=== PATIENT | male | born 1950 | race Caucasian/White ===

== ENCOUNTER 2019-10-21 13:36 | Inpatient (IN) | payer MEDICARE, SELFPAY ==
[2019-10-21] VITALS (10 sets, daily range): BP systolic 104–131; BP diastolic 60–79; PULSE 111–123; RESP 20–24; TEMP 36.6–37; O2SAT 95–98; BMI 28.4
--- NOTE | ~2019-10-21 | XR_ITS ---
EXAMINATION: XR chest 2V DATE: 10/21/2019 14:33 INDICATION: Shortness of breath and cough TECHNIQUE: PA and lateral views of the chest are obtained. COMPARISON: 07/19/2019 FINDINGS: There are patchy airspace opacities of the mid and lower lung zones. There is no pleural ef fusion or pneumothorax. The cardiomediastinal silhouette is normal. There is mild thoracic spondylosi s. IMPRESSION: 1. Minimal airspace opacities of the mid and lower lung zones, consistent with pneumonia versus atele ctasis. Reviewed, dictated and finalized at location A. IMPRESSION: 1. Minimal airspace opacities of the mid and lower lung zones, consistent with pneumonia versus atelectasis.
--- NOTE | 2019-10-21 14:18 | ECG_ITS ---
Measurements Intervals [place] Rate: 118 P: 70 CO: 130 QRS: 50 QRSD: 81 T: 54 QT: 278 QTc: 390 Interpretive Statements SINUS TACHYCARDIA ATRIAL PREMATURE COMPLEX ABNORMAL ECG Electronically Signed On 10-21-2019 14:46:30 CDT by Doug Pablo D.O.
[2019-10-21] MEDS: methylPREDNISolone SOD SUCC 125 MG VIAL IV PUSH (14:50)
[2019-10-21] MEDS: IPRATROPIUM 0.5 MG/ALBUTEROL SULFATE 2.5 MG AMPUL.NEB 3 ML INHALATION ×2 (14:50→18:55)
[2019-10-21 14:58] LABS: Basophils Absolute Auto 0.13 K/mm3 (0.00-0.10); Eosinophils Absolute Auto 0.44 K/mm3 (0.02-0.50); Eosinophils Percent Auto 3.4 % (1.0-6.0); Hematocrit 43.4 % (37.0-46.0); Hemoglobin 14.2 g/dL (12.4-15.3); Immature Granulocyte Absolute 0.06 K/mm3 (0.00-0.00); Immature Granulocyte Percent A 0.5 % (0.0-0.0); Lymphocytes Absolute Auto 1.87 K/mm3 (1.10-4.50); Lymphocytes Percent Auto 14.5 % (18.0-42.0); Mean Corpuscular HGB Conc 32.7 g/dL (32.0-36.0); Mean Corpuscular Hemoglobin 31.3 pg (27.0-31.0); Mean Corpuscular Volume 95.6 fL (78.0-102.0); Mean Platelet Volume 9.5 fl (8.7-11.0); Monocytes Absolute Auto 1.14 K/mm3 (0.10-0.90); Monocytes Percent Auto 8.8 % (2.0-11.0); Neutrophils Absolute Auto 9.3 K/mm3 (1.7-7.2); Neutrophils Percent Auto 71.8 % (50.0-70.0); Platelet Count Result 282 K/mm3 (150-420); Red Blood Count 4.54 M/mm3 (4.70-6.10); Red Cell Distribution Width 13.2 % (11.6-14.4); White Blood Count 12.9 K/mm3 (4.8-10.8)
[2019-10-21 15:16] LABS: Lactic Acid 1.7 mmol/L (0.4-2.0); Magnesium 1.7 mg/dL (1.8-2.4)
[2019-10-21 15:16] LABS: Alanine Aminotransferase 20 U/L (16-63); Albumin Level 3.5 g/dL (3.4-5.0); Alkaline Phosphatase 82 U/L (46-116); Anion Gap 12.7 mmol/L (7-16); Aspartate Amino Transferase 13 U/L (15-37); Bilirubin,Total 0.3 mg/dL (0.00-1.00); Blood Urea Nitrogen 14 mg/dL (7-18); Calcium 8.9 mg/dL (8.5-10.1); Carbon Dioxide 29 mmol/L (21-32); Chloride 103 mmol/L (98-108); Estimated Glomerular Filt Rate > 60; Glucose 112 mg/dL (70-99); Osmolality Calculated 291 mOsm/kg (285-295); Potassium 4.7 mmol/L (3.5-5.1); Sodium 140 mmol/L (136-145)
[2019-10-21 15:17] LABS: Troponin I < 0.02 ng/mL (0.00-0.056)
[2019-10-21 15:19] LABS: Influenza Control Valid (Valid)
--- NOTE | 2019-10-21 15:22 | ED.SOB ---
HPI - SOB/Dyspnea General Chief Complaint: Shortness of Breath/Dyspnea Stated Complaint: SOB Source: patient and family Mode of arrival: ambulatory Limitations: no limitations History of Present Illness HPI Narrative: 68-year-old male with increasing shortness of breath over the last 3 days has a history of COPD, has had pneumonia in the past recently discharged the end of June with COPD exacerbation and pneumonia. Currently the patient is shortness of breath with no fever chills is currently no cough no chest pain no abdominal pain. Patient has a history of COPD, history of CHF, diabetes hypertension. If has not been any outside of the area travel no fever or chills. MD elicited complaint: shortness of breath Pertinent past history: COPD, congestive heart failure and diabetes Onset (ago): day(s) Context: anxiety Timing: constant and progressively worsening Severity: moderate Exacerbating factors: exertion Relieving factors: rest and bronchodilators Known history of: COPD and recurrent pneumonia Treatment prior to arrival: oxygen and bronchodilator Related Data Home Medications Medication Instructions Recorded Confirmed ipratropium-albuterol 3 ml INHALATION Q4H PRN 07/19/19 10/21/19 budesonide-formoterol [Symbicort] 2 puff INHALATION Q12H 10/21/19 10/21/19 furosemide 80 mg PO DAILY 10/21/19 10/21/19 insulin glargine [Lantus Solostar 40 unit SUBCUT DAILY 10/21/19 10/21/19 U-100 Insulin] metformin 1,000 mg PO BID 10/21/19 10/21/19 pravastatin 40 mg PO DAILY 10/21/19 10/21/19 simethicone 80 mg PO QID 10/21/19 10/21/19 tiotropium bromide [Spiriva 2 inh INHALATION QAM 10/21/19 10/21/19 Respimat] Allergies Allergy/AdvReac Type Severity Reaction Status Date / Time No Known Allergies Allergy Unknown Unknown Uncoded 07/26/19 07:02 Review of Systems Review of Systems: All systems reviewed & are unremarkable except as noted in HPI and below PMFSH Past Medical History Medical History Anxiety brought on by worsening of COPD and when around crowds. COPD (chronic obstructive pulmonary disease) Obesity Type 2 diabetes mellitus treated with insulin Family History Family History Mother Hyperlipidemia Father No problems noted. Sibling Diabetes mellitus Social History Social History Smoking packs per day: 1.5 Smoking cigarettes per day: 30.0 Years smoked: 40 Smoking pack-years: 60.00 Smoking status: Former smoker Tobacco type: cigarettes Second hand tobacco smoke exposure: Yes Alcohol intake: current Drinks per week: 1 Substance use: never Substance use type: does not use Gender identity (if verbalized by the patient): Male Spiritual care concerns: No Agree to blood products: Yes Exam Const: General: no acute distress and alert Orientation/consciousness: patient oriented x3 HENMT: Head: normal to inspection Eyes: Conjunctivae: conjunctivae normal Pupils: Equal, round and reactive pupils present Neck: Neck: normal visual inspection and no lymphadenopathy Chest: Chest palpation & inspection: normal inspection of the chest Resp: Effort & Inspection: labored Auscultation: rhonchi, wheezes and diminished lung sounds Cardio: Rate: regular rate and tachycardic GI: GI Palp: Yes Soft to palpation : Testes: Testes normal Back/Spine/Pelvis: Back: no CVA tenderness Skin: General skin exam: normal color Neuro: General: patient oriented x3, moves all extremities and no meningeal signs Speech: normal speech Extrem: General: normal to inspection Psych: Mental Status: mental status grossly normal Affect: normal affect Thought content: Yes Normal thought content present Course Vital Signs Vital signs: Vital Signs Temperature 36.7 C 10/21/19 13:54 Pulse Rate 116 H 10/21/19 13:5
[2019-10-21 15:24] LABS: BNP 17.8 pg/mL (0-100)
[2019-10-21 15:48] LABS: HCO3 VBG 27.1 mEq/l (24.0-30.0); PCO2 VBG 51.7 mmHg (42.0-48.0); PO2 VBG 34.4 mmHg (35.0-45.0); pH VBG 7.34 (7.33-7.43)
[2019-10-21 15:49] LABS: Device NASAL CANNULA
[2019-10-21] MEDS: BUDESONIDE/FORMOTEROL (*SP) 160-4.5 MCG 6 GM INH 2 PUFF INHALATION (17:12)
[2019-10-21] MEDS: SODIUM CHLORIDE 0.9% IV 1,000 ML 100 ML IV CONT (17:12)
[2019-10-21] MEDS: SIMETHICONE 80 MG TAB.CHEW PO ×2 (17:12→20:51)
[2019-10-21] MEDS: metFORMIN HCL 500 MG TABLET 1000 MG PO (17:12)
[2019-10-21 17:20] LABS: Glucose Point of Care 153 (65-105)
--- NOTE | 2019-10-21 17:30 | ADMGEN ---
This patient, Cooper Kenney, was admitted to 2nd Floor Room 226-2. Patient/family oriented to hospital policies and general routines including ID bracelet, bed and alarms, visiting hours, pain management, procedures, bathroom and other care routines, personal items, smoking policy, room service/diet, and visiting hours. Valuables list has been completed.Pt questions if dr has continued his anxiety meds. Information on how to activate the Rapid Response Team has been discussed. Patient is encouraged to report perceived risks to care and to ask questions if they do not understand what they are told or what they should do.
[2019-10-21] MEDS: methylPREDNISolone SOD SUCC 40 MG VIAL IV PUSH (20:51)
[2019-10-21 21:00] LABS: Glucose Point of Care 254 (65-105)
--- NOTE | 2019-10-21 22:21 | PC.NURSE ---
pt says his breathing is better, asks for sandwich, dessert cup and another garth mist, iv running,
[2019-10-22] VITALS (11 sets, daily range): BP systolic 111–139; BP diastolic 59–79; PULSE 89–136; RESP 18–24; TEMP 36–36.6; O2SAT 90–98
[2019-10-22] MEDS: IPRATROPIUM 0.5 MG/ALBUTEROL SULFATE 2.5 MG AMPUL.NEB 3 ML INHALATION ×2 (00:25→05:43)
--- NOTE | 2019-10-22 00:49 | PC.NURSE ---
[address] [facility] pharmacy to blair orders
[2019-10-22] MEDS: BUDESONIDE/FORMOTEROL (*SP) 160-4.5 MCG 6 GM INH 2 PUFF INHALATION (05:03)
[2019-10-22 05:22] LABS: Basophils Absolute Auto 0.03 K/mm3 (0.00-0.10); Basophils Percent Auto 0.2 % (0.0-1.0); Hematocrit 43.9 % (37.0-46.0); Hemoglobin 14.2 g/dL (12.4-15.3); Immature Granulocyte Absolute 0.06 K/mm3 (0.00-0.00); Immature Granulocyte Percent A 0.5 % (0.0-0.0); Lymphocytes Absolute Auto 0.95 K/mm3 (1.10-4.50); Lymphocytes Percent Auto 7.3 % (18.0-42.0); Mean Corpuscular HGB Conc 32.3 g/dL (32.0-36.0); Mean Corpuscular Hemoglobin 31.1 pg (27.0-31.0); Mean Corpuscular Volume 96.1 fL (78.0-102.0); Mean Platelet Volume 9.7 fl (8.7-11.0); Monocytes Absolute Auto 0.18 K/mm3 (0.10-0.90); Monocytes Percent Auto 1.4 % (2.0-11.0); Neutrophils Absolute Auto 11.8 K/mm3 (1.7-7.2); Neutrophils Percent Auto 90.6 % (50.0-70.0); Platelet Count Result 273 K/mm3 (150-420); Red Blood Count 4.57 M/mm3 (4.70-6.10); Red Cell Distribution Width 13.4 % (11.6-14.4)
[2019-10-22 05:38] LABS: Alanine Aminotransferase 18 U/L (16-63); Albumin Level 3.4 g/dL (3.4-5.0); Alkaline Phosphatase 74 U/L (46-116); Anion Gap 15.9 mmol/L (7-16); Aspartate Amino Transferase 12 U/L (15-37); Bilirubin,Total 0.2 mg/dL (0.00-1.00); Blood Urea Nitrogen 18 mg/dL (7-18); Calcium 8.9 mg/dL (8.5-10.1); Carbon Dioxide 27 mmol/L (21-32); Chloride 100 mmol/L (98-108); Estimated CRCL calculation 43 ml/min; Estimated Glomerular Filt Rate 58; Glucose 232 mg/dL (70-99); Magnesium 1.9 mg/dL (1.8-2.4); Osmolality Calculated 294 mOsm/kg (285-295); Potassium 4.9 mmol/L (3.5-5.1); Sodium 138 mmol/L (136-145); Total Protein 7.9 g/dL (6.4-8.2)
[2019-10-22 05:44] LABS: BNP 37.4 pg/mL (0-100)
--- NOTE | 2019-10-22 07:25 | PC.NURSE ---
Sitting in chair, states feeling better, no acute distress noted, cough at times, oxygen as per home dose 3L NC, afebrile, no pain
[2019-10-22 07:35] LABS: Glucose Point of Care 213 (65-105)
--- NOTE | 2019-10-22 08:30 | PC.NURSE ---
EAting breakfast, denies needs, no distress noted, no cough at this time
[2019-10-22] MEDS: INSULIN GLARGINE (*BKC) 100 UNITS/ML 40 UNITS SUB-Q (08:46)
[2019-10-22] MEDS: methylPREDNISolone SOD SUCC 40 MG VIAL IV PUSH (08:48)
[2019-10-22] MEDS: metFORMIN HCL 500 MG TABLET 1000 MG PO (08:49)
[2019-10-22] MEDS: PRAVASTATIN SODIUM 20 MG TABLET 40 MG PO (08:49)
[2019-10-22] MEDS: SIMETHICONE 80 MG TAB.CHEW PO (08:51)
[2019-10-22] MEDS: FUROSEMIDE 40 MG TABLET 80 MG PO (08:51)
--- NOTE | 2019-10-22 10:03 | PC.NURSE ---
In chair denies needs at this time, oxygen on at 3L NC
[2019-10-22 11:32] LABS: Glucose Point of Care 264 (65-105)
--- NOTE | 2019-10-22 11:43 | PM.IMHP ---
H&P: HPI History of Present Illness Chief complaint: SOB Narrative: Cooper Kenney is a 68 year old male that was admitted yesterday through the ED with increasing shortness of breath/dyspnea over the last 3 days with exertion. He has had pneumonia in the past, was recently discharged the end of June with COPD exacerbation and pneumonia. In the ED admission, the patient was short of breath with no fever chills, no cough, no chest pain, no abdominal pain. Patient has a history of COPD, recurrent pneumonia, anxiety, history of CHF, diabetes, and hypertension. He has not been any outside of the area travel, no fever or chills. Today, Cooper is feeling much better and stated that he wanted to go home today. He continues to have a productive cough with green tinted sputum. Ordered sputum culture. He is currently tolerating 3L02 NC (which is his baseline home O2 requirement as well). He told me that he came to the ED because he was getting significantly short of breath and having to rest with activity that he hadn't needed to prior. This could be relelated to pneumonia or could also be related to progression or advancing of his COPD. Ordered PT/OT evaluation. Checking his BNP level, ordered COVID swab, and discussed discharge. Patient voiced understanding that he may get worse again while at home and will need to come back to the ED right away for re-evaluation - Cooper voiced understanding and said that in the past he has done that before with COPD exacerbations. I also discussed possible concerning s/s of COVID infection and worsening of his condition - he voiced understanding of those as well and that he would need to return to the ED for re-evaulation/treatment as needed. He lives at home with his 80+ mother (who is herself feeling well and outside doing yardwork this week per patient report) and they have separate bedrooms. Will discharge and continue his oxygen, antibiotic, inhalers, and nebs (he informed me that he has a nebulizer at home already and knows how to do neb txs.) Review of Systems Review of Systems: All systems reviewed & are unremarkable except as noted in HPI and below Constitutional: Constitutional: Reports as per HPI, Denies excessive sweating, Denies headache(s), Denies increased appetite, Denies snoring and Denies weight gain Eyes: Eyes: Reports as per HPI, Denies exophthalmos, Denies diplopia, Denies floaters and Denies loss of peripheral vision ENT: Reports as per HPI, Reports Normal hearing present, Denies facial pain, Denies headache(s), Denies nasal congestion, Denies nasal discharge, Denies odynophagia and Denies tinnitus Cardiovascular: Cardiovascular: Reports as per HPI, Denies chest pain, Denies diaphoresis, Reports pedal edema, Reports leg edema, Denies lightheadedness and Denies palpitations Comments: patient states that his leg and feet swelling are chronic and are always like that He states that he has his lasix 80mg and has been taking it every day. Respiratory: Respiratory: Reports as per HPI, Reports chest congestion, Reports cough, Denies hemoptysis, Reports dyspnea, Reports dyspnea on exertion, Denies snoring and Denies wheezing Gastrointestinal: Gastrointestinal: Reports as per HPI, Denies abdominal pain, Denies melena, Denies bloating, Denies hematochezia, Denies constipation, Denies heartburn, Denies diarrhea, Denies nausea, Denies odynophagia, Denies vomiting and Denies hematemesis Genitourinary: Genitourinary: Reports as per HPI, Denies hematuria, Denies dysuria, Denies flank pain, Denies urinary frequency, Denies urinary hesitancy, Denies urinary incontinence and Denies urinary urgency Musculoskeletal: Musculoskeletal: Denies no additional musculoskeletal complaints, Reports as per HPI, Denies back pain, Reports myalgias (chronic left leg stiffness & pain with standing after sitting for long time), Denies arthralgias, Denies joint swelling, Denies neck pain and Reports stiffness Integumentary/Breasts: S
--- NOTE | 2019-10-22 12:05 | PC.NURSE ---
Eating lunch, denies needs, no distress at rest
[2019-10-22 12:34] LABS: BNP 27.6 pg/mL (0-100)
--- NOTE | 2019-10-22 13:24 | PM.DS ---
DS: Diagnosis Admitting Diagnosis Admitting Diagnosis: Chronic obstructive pulmonary disease with (acute) exacerbation Discharge Diagnosis (1) Acute exacerbation of chronic obstructive pulmonary disease: Code(s): J44.1 - Chronic obstructive pulmonary disease with (acute) exacerbation Status: Acute Assessment and Plan: his shortness of breath/dyspnea has improved since admission with medications and interventions. caused by COPD exacerbation VS. CHF exacerbation VS. COPD progression of disease VS. bilateral pneumonia VS. Covid . no fever or chills, productive cough - ordered sputum, no chest pain, no numbness or tingling, no arm or jaw pain, no abdominal pain. history of COPD, recurrent pneumonia, anxiety, history of CHF, diabetes, and hypertension. checking BNP level (patient denies this feeling like a CHF exacerbation) and recommended daily weight log at home. Cooper is feeling much better and stated that he wanted to go home today. Will discharge on antibiotics, steroids, Mucinex, Inhalers/Neb. Txs. , and continued home O2 order (3L O2 NC) HR increases significantly with exertion, may be related to obesity, CHF, deconditioning, respiratory dysfxn. (due to pneumonia/COPD). BNP was under 50 yesterday and today, CHF appears to be controlled. ordered COVID swab, and discussed discharge. WBC remains relatively stable (despite steroid dosing) 12.9 to 13.0, no fevers. Patient voiced understanding that he may or may not get worse again while at home and will need to come back to the ED right away for re-evaluation - Cooper voiced understanding and said that in the past he has done that before with COPD exacerbations. I also discussed possible concerning s/s of COVID infection and worsening of his condition - he voiced understanding of those as well and that he would need to return to the ED for re-evaulation/treatment as needed. He lives at home with his 80+ mother (who is herself feeling well and outside doing yardwork this week per patient report) and they have separate bedrooms. Will discharge and continue his oxygen, antibiotic, inhalers, and nebs (he informed me that he has a nebulizer at home already and knows how to do neb txs.) (2) Obesity: Code(s): E66.9 - Obesity, unspecified Status: Acute Assessment and Plan: Obese with BMI 28.5 continue weight loss efforts weigh yourself daily and record the weights in a log to discuss with PCP and other physicians, especially Hide Dyer. gradually increase activity daily calorie/carb counting continue glucose control with daily glucometer testing F/U with PCP Dr. Nance (3) Hypertension: Code(s): I10 - Essential (primary) hypertension Status: Acute Assessment and Plan: Check Blood pressure and Heart Rate daily at home record the BP and HR in a log to discuss with PCP and other physicians, especially Hide Dyer. work on further weight loss and continue weight loss efforts weigh yourself daily and record the weights in a log to discuss with PCP and other physicians, especially Hide Dyer. gradually increase activity daily calorie/carb counting continue daily home Provastatin and Furosemide BNP was under 50 yesterday and today, CHF appears to be controlled. F/U with PCP Dr. Nance and [place] Hide Dyer. (4) Type 2 diabetes mellitus treated with insulin: Code(s): E11.9 - Type 2 diabetes mellitus without complications; Z79.4 - termite inspector (current) use of insulin Status: Acute Assessment and Plan: Obese with BMI 28.5 continue weight loss efforts weigh yourself daily and record the weights in a log to discuss with PCP and other physicians, especially Hide Dyer. gradually increase activity daily calorie/carb counting continue glucose control with daily glucometer testing continue daily Metformin at home and daily Lantus at home F/U with PCP Dr. Nance (5) Pneumonia: Qualifiers: Laterality: right
--- NOTE | 2019-10-22 13:36 | PC.NURSE ---
Telemetry discontinued, dressing self, called for ride
--- NOTE | 2019-10-22 14:00 | PC.NURSE ---
Discharge instructions reviewed, questioned why no dexamethasone, educated on use of prednisone and ability to taper dosing, follow up with Dr Nance to review medications, no further questions voiced, waiting on ride home
--- NOTE | 2019-10-22 14:10 | PC.NURSE ---
discharge via wheel chair to home, personal items and medications returned to patient
--- NOTE | 2019-10-22 20:44 | PM.EVENT ---
Event Note Event Note Event Note: Patient states he feels better today and wants to go. Diffuse breath sounds throughout with faint expiratory wheezing. Regular tachycardia. extremities are warm dry and pink with full distal pulses. Edematous lower extremities. If patient can demonstrate his ability to perform ADLs and take oral medications for his illness, will discharge him. Have examined the patient and reviewed the chart. I discussed the patient's care with A Jaya ROY and agree with her assessment and plan.
--- NOTE | 2019-10-23 17:37 | PC.NURSE ---
NEGATIVE RESULTS CALLED TO PATIENT
--- NOTE | 2019-10-27 12:30 | PC.NURSE ---
DISCHARGE FOLLOW UP: No answer, message left
== END 2019-10-22 14:10 | disposition home or self-care (01) | DRG 190 ==
LOC: CHSED 15:29 → CHS2ND 15:44
PROVIDERS: Nurse Practitioner; Admitting Provider Emergency Medicine; Emergency Provider Emergency Medicine; PCP Family Medicine; Visit Provider Emergency Medicine
DX: J44.0 Chronic obstructive pulmonary disease with (acute) lower respiratory infection (principal); J18.9 Pneumonia, unspecified organism; J44.1 Chronic obstructive pulmonary disease with (acute) exacerbation; I11.0 Hypertensive heart disease with heart failure; Z87.891 Personal history of nicotine dependence; I50.9 Heart failure, unspecified; E11.9 Type 2 diabetes mellitus without complications; Z79.4 Long term (current) use of insulin; Z20.828 Contact with and (suspected) exposure to other viral communicable diseases
CPT/HCPCS: 36415; 71046; 80053; 82803; 83605; 83735; 83880; 84484; 85025; 87040; 87070; 87205; 87804; 93005; 94640; 96365; 96375; 99285; A9270; J0456; J0696; J1815; J2920; J2930; J7030

== ENCOUNTER 2019-11-29 13:03 | Inpatient (IN) | payer MEDICARE, SELFPAY ==
[2019-11-29] VITALS (10 sets, daily range): BP systolic 90–143; BP diastolic 59–77; PULSE 73–134; RESP 20–26; TEMP 36.6; O2SAT 88–93; BMI 46.3
--- NOTE | ~2019-11-29 | XR_ITS ---
EXAMINATION: XR chest 2V DATE: 11/30/2019 13:21 INDICATION: Shortness of breath. TECHNIQUE: Frontal and lateral views of the chest were obtained. COMPARISON: Chest single view 11/29/2019, chest CT 11/05/2017 FINDINGS: The chest demonstrates clear lungs without pneumonia, pleural effusion, or pneumothorax. Th e heart size is normal. There are prominent paracardial fat pads. IMPRESSION: 1. No acute cardiopulmonary disease. Reviewed, dictated and finalized at location A.
--- NOTE | ~2019-11-29 | XR_ITS ---
EXAMINATION: XR chest 1V portable DATE: 11/29/2019 13:35 INDICATION: Shortness of breath. Cough. TECHNIQUE: A single frontal view of the chest was obtained. COMPARISON: Chest 2 views 10/21/2019, 09/08/2018, chest CT 11/05/2017 FINDINGS: There are lucencies in the lungs, consistent with emphysema. There is mild atelectasis in t he lower lung zones. No pleural effusion or pneumothorax. The heart size is normal. There are promine nt paracardial fat pads. IMPRESSION: 1. Mild atelectasis in the lower lung zones. 2. Emphysema. Reviewed, dictated and finalized at location A.
--- NOTE | 2019-11-29 13:19 | ECG_ITS ---
Measurements Intervals [place] Rate: 134 P: 73 MT: 132 QRS: 63 QRSD: 86 T: 67 QT: 270 QTc: 403 Interpretive Statements SINUS TACHYCARDIA ATRIAL PREMATURE COMPLEXES BASELINE ARTIFACT- II, III, AVL, AVF ABNORMAL ECG Electronically Signed On 11-29-2019 14:26:52 CDT by Doug Pablo D.O.
[2019-11-29] MEDS: IPRATROPIUM 0.5 MG/ALBUTEROL SULFATE 2.5 MG AMPUL.NEB 3 ML INHALATION ×3 (13:42→21:52)
[2019-11-29 13:47] LABS: Basophils Absolute Auto 0.09 K/mm3 (0.00-0.10); Basophils Percent Auto 0.6 % (0.0-1.0); Eosinophils Absolute Auto 0.18 K/mm3 (0.02-0.50); Eosinophils Percent Auto 1.2 % (1.0-6.0); Hematocrit 44.5 % (37.0-46.0); Hemoglobin 14.7 g/dL (12.4-15.3); Immature Granulocyte Percent A 0.7 % (0.0-0.0); Lymphocytes Absolute Auto 1.34 K/mm3 (1.10-4.50); Lymphocytes Percent Auto 8.8 % (18.0-42.0); Mean Corpuscular Hemoglobin 31.3 pg (27.0-31.0); Mean Corpuscular Volume 94.9 fL (78.0-102.0); Mean Platelet Volume 10.4 fl (8.7-11.0); Monocytes Percent Auto 5.9 % (2.0-11.0); Neutrophils Absolute Auto 12.7 K/mm3 (1.7-7.2); Neutrophils Percent Auto 82.8 % (50.0-70.0); Platelet Count Result 315 K/mm3 (150-420); Red Blood Count 4.69 M/mm3 (4.70-6.10); Red Cell Distribution Width 13.2 % (11.6-14.4); White Blood Count 15.3 K/mm3 (4.8-10.8)
--- NOTE | 2019-11-29 13:50 | ED.SOB ---
HPI - SOB/Dyspnea General Chief Complaint: Shortness of Breath/Dyspnea Stated Complaint: cough sob Source: patient Mode of arrival: wheelchair Limitations: no limitations History of Present Illness HPI Narrative: This is a 68-year-old male presents to the emergency department with increasing shortness of breath, patient has some audible breath sounds with wheezing, with no fever chills no nausea vomiting no chest pain or pressure, patient has a history of COPD with recurrent pneumonias and history of CHF and diabetes type 2 on insulin. Recent discharge for a COPD exacerbation and pneumonia, the patient continues to smoke he uses oxygen at home but most of the last couple of days had developed increasing shortness of breath and got worse over the last 24 hours. MD elicited complaint: shortness of breath Pertinent past history: COPD and congestive heart failure Onset (ago): day(s) Context: smoke/fume exposure Timing: constant Severity: moderate Exacerbating factors: exertion, warm air, strong odors and smoke Relieving factors: nothing Known history of: COPD, congestive heart failure, diabetes and recurrent pneumonia Associated symptoms: wheezing and orthopnea Related Data Home Medications Medication Instructions Recorded Confirmed Lantus Solostar U-100 Insulin 40 unit SUBCUT DAILY 10/21/19 11/29/19 Spiriva Respimat 2 inh INHALATION QAM 10/21/19 11/29/19 budesonide-formoterol [Symbicort] 2 puff INHALATION Q12H 10/21/19 11/29/19 furosemide 80 mg PO DAILY 10/21/19 11/29/19 metformin 1,000 mg PO BID 10/21/19 11/29/19 pravastatin 40 mg PO DAILY 10/21/19 11/29/19 simethicone 80 mg PO QID 10/21/19 11/29/19 Allergies Allergy/AdvReac Type Severity Reaction Status Date / Time No Known Allergies Allergy Unknown Unknown Uncoded 07/26/19 07:02 Review of Systems Review of Systems: All systems reviewed & are unremarkable except as noted in HPI and below PMFSH Past Medical History Medical History Anxiety brought on by worsening of COPD and when around crowds. COPD (chronic obstructive pulmonary disease) Obesity Pneumonia Type 2 diabetes mellitus treated with insulin Family History Family History Mother Hyperlipidemia Father No problems noted. Sibling Diabetes mellitus Social History Social History Smoking packs per day: 1.5 Smoking cigarettes per day: 30.0 Years smoked: 40 Smoking pack-years: 60.00 Smoking status: Former smoker Tobacco type: cigarettes Second hand tobacco smoke exposure: Yes Alcohol intake: never Drinks per week: 1 Substance use: never Substance use type: does not use Gender identity (if verbalized by the patient): Male Spiritual care concerns: No Agree to blood products: Yes Exam Const: General: no acute distress and alert Nutritional Appearance: obese Orientation/consciousness: patient oriented x3 HENMT: Head: normal to inspection Eyes: Conjunctivae: conjunctivae normal Pupils: Equal, round and reactive pupils present Neck: Neck: normal visual inspection and no lymphadenopathy Chest: Chest palpation & inspection: normal inspection of the chest Resp: Auscultation: wheezes and diminished lung sounds Cardio: Rate: tachycardic GI: GI Palp: Yes Soft to palpation Urinary Catheter: Urinary Catheter: patent and draining Skin: General skin exam: normal color Rashes: no rashes Neuro: General: patient oriented x3, moves all extremities, no meningeal signs and no focal motor deficits Extrem: General: normal to inspection Psych: Mental Status: mental status grossly normal Thought content: Yes Normal thought content present Course Vital Signs Vital signs: Vital Signs Temperature 36.6 C 11/29/19 13:21 Pulse Rate 133 H 11/29/19 13:21 Respiratory Rate 26 H 11/29/19 13:2
[2019-11-29 14:04] LABS: Alanine Aminotransferase 22 U/L (16-63); Albumin Level 3.4 g/dL (3.4-5.0); Alkaline Phosphatase 89 U/L (46-116); Anion Gap 12.4 mmol/L (7-16); Aspartate Amino Transferase 15 U/L (15-37); Bilirubin,Total 0.5 mg/dL (0.00-1.00); Blood Urea Nitrogen 17 mg/dL (7-18); Calcium 9.1 mg/dL (8.5-10.1); Carbon Dioxide 32 mmol/L (21-32); Chloride 97 mmol/L (98-108); Estimated Glomerular Filt Rate > 60; Glucose 299 mg/dL (70-99); Osmolality Calculated 296 mOsm/kg (285-295); Potassium 4.4 mmol/L (3.5-5.1); Sodium 137 mmol/L (136-145); Total Protein 7.8 g/dL (6.4-8.2)
[2019-11-29 14:05] LABS: Troponin I < 0.02 ng/mL (0.00-0.056)
[2019-11-29] MEDS: methylPREDNISolone SOD SUCC 125 MG VIAL IV PUSH (14:10)
[2019-11-29] MEDS: SODIUM CHLORIDE 0.9% IV 500 ML 999 ML IV CONT (14:13)
[2019-11-29 17:16] LABS: Glucose Point of Care 260 (65-105)
[2019-11-29] MEDS: methylPREDNISolone SOD SUCC 40 MG VIAL IV PUSH ×2 (17:20→20:24)
[2019-11-29] MEDS: metFORMIN HCL 500 MG TABLET 1000 MG PO (17:20)
[2019-11-29] MEDS: SIMETHICONE 80 MG TAB.CHEW PO ×2 (17:20→20:24)
[2019-11-29] MEDS: BUDESONIDE/FORMOTEROL (*SP) 160-4.5 MCG 6 GM INH 2 PUFF INHALATION (20:23)
[2019-11-29 20:45] LABS: Glucose Point of Care 305 (65-105)
--- NOTE | 2019-11-29 22:42 | PC.NURSE ---
11/29/2019 1600- Patient brought to floor via w/c from ER. Admitted to . Alert and oriented. Able to answer questions. O2 on at 4LPM/NC, which is what he on at home. Patient becomes SOB with exertion and becomes tachycardic. Neb treatments per MD order. Call light and belongings in reach. Patient oriented to floor, room, call light system, and meal times. Patient states understanding.
[2019-11-30] VITALS (19 sets, daily range): BP systolic 105–135; BP diastolic 56–76; PULSE 80–130; RESP 20–24; TEMP 36.3–36.9; O2SAT 93–96
[2019-11-30] MEDS: IPRATROPIUM 0.5 MG/ALBUTEROL SULFATE 2.5 MG AMPUL.NEB 3 ML INHALATION ×7 (02:17→21:54)
[2019-11-30 06:00] LABS: Basophils Absolute Auto 0.02 K/mm3 (0.00-0.10); Basophils Percent Auto 0.1 % (0.0-1.0); Hemoglobin 13.8 g/dL (12.4-15.3); Immature Granulocyte Absolute 0.13 K/mm3 (0.00-0.00); Immature Granulocyte Percent A 0.8 % (0.0-0.0); Lymphocytes Absolute Auto 1.04 K/mm3 (1.10-4.50); Lymphocytes Percent Auto 6.6 % (18.0-42.0); Mean Corpuscular HGB Conc 32.9 g/dL (32.0-36.0); Mean Corpuscular Hemoglobin 30.5 pg (27.0-31.0); Mean Corpuscular Volume 92.9 fL (78.0-102.0); Mean Platelet Volume 10.5 fl (8.7-11.0); Monocytes Absolute Auto 0.28 K/mm3 (0.10-0.90); Monocytes Percent Auto 1.8 % (2.0-11.0); Neutrophils Absolute Auto 14.3 K/mm3 (1.7-7.2); Neutrophils Percent Auto 90.7 % (50.0-70.0); Platelet Count Result 297 K/mm3 (150-420); Red Blood Count 4.52 M/mm3 (4.70-6.10); Red Cell Distribution Width 13.1 % (11.6-14.4); White Blood Count 15.8 K/mm3 (4.8-10.8)
[2019-11-30 06:19] LABS: Alanine Aminotransferase 24 U/L (16-63); Albumin Level 3.2 g/dL (3.4-5.0); Alkaline Phosphatase 68 U/L (46-116); Anion Gap 17.6 mmol/L (7-16); Aspartate Amino Transferase 12 U/L (15-37); Bilirubin,Total 0.3 mg/dL (0.00-1.00); Blood Urea Nitrogen 19 mg/dL (7-18); Calcium 9.2 mg/dL (8.5-10.1); Carbon Dioxide 25 mmol/L (21-32); Chloride 97 mmol/L (98-108); Estimated CRCL calculation 65 ml/min; Estimated Glomerular Filt Rate > 60; Glucose 314 mg/dL (70-99); Magnesium 1.7 mg/dL (1.8-2.4); Osmolality Calculated 294 mOsm/kg (285-295); Potassium 4.6 mmol/L (3.5-5.1); Sodium 135 mmol/L (136-145); Total Protein 7.5 g/dL (6.4-8.2)
[2019-11-30 06:22] LABS: Lactic Acid Reflex 3.7 mmol/L (0.4-2.0)
[2019-11-30 07:58] LABS: Glucose Point of Care 431 (65-105)
[2019-11-30 08:55] LABS: Reflex Lactic Acid Yes or No Add Lactic
[2019-11-30] MEDS: methylPREDNISolone SOD SUCC 40 MG VIAL IV PUSH ×4 (09:31→20:16)
[2019-11-30] MEDS: FUROSEMIDE 20 MG TABLET 40 MG PO (09:31)
[2019-11-30] MEDS: PRAVASTATIN SODIUM 20 MG TABLET 40 MG PO (09:31)
[2019-11-30] MEDS: metFORMIN HCL 500 MG TABLET 1000 MG PO ×2 (09:31→16:55)
--- NOTE | 2019-11-30 09:31 | ECG_ITS ---
Measurements Intervals [place] Rate: 128 P: 77 [place]: 126 QRS: 55 QRSD: 85 T: 44 QT: 275 QTc: 401 Interpretive Statements SINUS TACHYCARDIA ATRIAL COUPLET AND ATRIAL PREMATURE COMPLEX ABNORMAL ECG Electronically Signed On 11-30-2019 10:00:25 CDT by Doug Pablo D.O.
[2019-11-30] MEDS: BUDESONIDE/FORMOTEROL (*SP) 160-4.5 MCG 6 GM INH 2 PUFF INHALATION ×2 (09:32→20:15)
[2019-11-30] MEDS: SIMETHICONE 80 MG TAB.CHEW PO ×4 (09:32→20:16)
[2019-11-30] MEDS: INSULIN GLARGINE (*BKC) 100 UNITS/ML 40 UNITS SUB-Q (09:33)
[2019-11-30 09:38] LABS: Lactic Acid 3.5 mmol/L (0.4-2.0)
--- NOTE | 2019-11-30 09:51 | PM.IMHP ---
H&P: HPI History of Present Illness Chief complaint: cough sob Narrative: Cooper Kenney is a 68 year old male admitted yesterday due to increasing shortness of breath, cough, and worsening dyspnea. He had some audible breath sounds with wheezing and orthopnea, with no fever chills no nausea vomiting no chest pain or pressure. He has a history of obesity, COPD with recurrent pneumonias and history of CHF and diabetes type 2 on insulin. Recent discharge for a COPD exacerbation and pneumonia, the patient continues to smoke he uses oxygen at home but most of the last couple of days had developed increasing shortness of breath and got worse over the last 24 hours. His white count was 15.3, elevated at admission. He was admitted with left lower pneumonia and COPD exacerbation His admission EKG performed shows sinus tachycardia with supraventricular premature complexes, was done on November 29, 2019 at 1:37 p.m. Review of Systems Review of Systems: All systems reviewed & are unremarkable except as noted in HPI and below Constitutional: Constitutional: Reports as per HPI, Reports difficulty sleeping, Reports fatigue, Reports lethargy and Reports weakness Eyes: Eyes: Reports as per HPI, Denies blurry vision and Denies photophobia ENT: Reports as per HPI, Reports Normal hearing present, Denies dysphagia, Denies epistaxis, Reports nasal congestion, Reports nasal discharge and Denies tinnitus Cardiovascular: Cardiovascular: Reports as per HPI, Denies chest pain, Denies diaphoresis, Denies pedal edema, Denies leg edema, Denies lightheadedness and Reports palpitations Respiratory: Respiratory: Reports as per HPI, Reports chest congestion, Reports cough, Denies hemoptysis, Reports dyspnea, Reports dyspnea on exertion and Reports wheezing Gastrointestinal: Gastrointestinal: Reports as per HPI, Denies abdominal pain, Denies melena, Reports bloating, Denies hematochezia, Reports constipation, Denies heartburn, Denies diarrhea, Denies nausea, Denies vomiting and Denies hematemesis Genitourinary: Genitourinary: Reports as per HPI, Denies hematuria, Denies dysuria, Denies flank pain, Denies urinary frequency, Denies urinary hesitancy, Denies urinary incontinence and Denies urinary urgency Musculoskeletal: Musculoskeletal: Reports as per HPI, Denies back pain, Denies myalgias, Denies arthralgias, Denies joint swelling, Denies neck pain and Denies stiffness Integumentary/Breasts: Skin/Breast: Reports as per HPI Neurologic: Reports as per HPI, Denies Abnormal speech present, Reports abnormal gait, Denies confusion, Denies headache(s) and Denies numbness Psychiatric: Psychiatric: Reports as per HPI, Reports anxiety, Denies confusion and Denies depression [facility] Past Medical History Medical History Anxiety brought on by worsening of COPD and when around crowds. COPD (chronic obstructive pulmonary disease) Obesity Pneumonia Type 2 diabetes mellitus treated with insulin Family History Family History (Updated 11/29/19 @ 19:48 by Anaya Lyons RN) Mother Hyperlipidemia Father No problems noted. Sibling Diabetes mellitus Sibling Pneumonia Social History Social History Smoking packs per day: 1.5 Smoking cigarettes per day: 30.0 Years smoked: 40 Smoking pack-years: 60.00 Smoking status: Former smoker Tobacco type: cigarettes Second hand tobacco smoke exposure: No Alcohol intake: current Drinks per week: 2 Substance use: never Substance use type: does not use Gender identity (if verbalized by the patient): Male Spiritual care concerns: No Agree to blood products: Yes Meds Home Medications and Allergies Home Medications Medication Instructions Recorded Confirmed Type Lantus Solostar U-100 Insulin 40 unit SUBCUT DAILY 10/21/19 11/29/19 History Spiriva Respimat 2 inh INHALATION QA
[2019-11-30 10:20] LABS: Phosphorus 3.6 mg/dL (2.6-4.7)
[2019-11-30 10:21] LABS: Creatine Kinase 67 U/L (39-308); Troponin I < 0.02 ng/mL (0.00-0.056)
[2019-11-30] MEDS: FLUTICASONE PROPIONATE 0.05% NA SPR 16 GM BTL (*BKC) 1 SPRAY NASAL ×2 (10:36→20:16)
[2019-11-30] MEDS: SALINE 0.65% NAS SOLN 44 ML BTL 1 SPRAY NASAL ×3 (10:36→23:28)
[2019-11-30] MEDS: SENNA/DOCUSATE SODIUM TABLET 1 TAB PO (10:37)
[2019-11-30] MEDS: MAGNESIUM SULF 2 GM/WATER 50ML 2 GM/50 ML BAG IVPB (10:37)
[2019-11-30] MEDS: FUROSEMIDE INJ 40 MG/4 ML VIAL IV PUSH (10:37)
[2019-11-30 11:41] LABS: Add Urine Microscopic? YES; Appearance Urine Clear (Clear); Bacteria Urine None seen /hpf; Bilirubin Urine Negative (Negative); Blood Urine Negative (Negative); Color Urine Yellow (Yellow); Glucose Urine UA 3+ (Negative); Ketones Urine Negative (Negative); Leukocyte Esterase Ur Negative (Negative); Nitrate Urine Negative (Negative); Protein Urine Negative (Negative); RBC Urine None seen /hpf (0-2); Specific Grav Ur <= 1.005 (1.010-1.020); Squamous Epithelial Cell Urine Rare /hpf (Few); Urobilinogen Urine 0.2 mg/dL (0.2-1.0); WBC Urine None seen /hpf (0-3)
[2019-11-30 11:44] LABS: Glucose Point of Care 327 (65-105)
[2019-11-30 12:14] LABS: D Dimer 0.21 mg/L (0.19-0.50)
[2019-11-30 12:25] LABS: BNP 50.7 pg/mL (0-100)
--- NOTE | 2019-11-30 13:06 | PC.NURSE ---
Patientrt transported off of floor for xray
--- NOTE | 2019-11-30 14:00 | ECHO_ITS ---
Patient Info Name: Cooper Kenney Age: 68 years : 1950 Gender: Male Ht: 64 in Wt: 270 lbs BSA: 2.42 m2 HR: 125 bpm BP: 135 / 76 mmHg Heart Rhythm: Tachycardia Technical Quality: Fair Exam Date: 11/30/2019 1:33 PM Exam Location: [facility] Patient Status: Inpatient Admit Date: 11/29/2019 Staff Ordering Physician: Leonela Lake NP Diamond Grinder: Matt Lyles RDCS Attending Provider: Broderick Salas MD Referring Physician: Jaya MURILLO; Exam Type: CA echo doppler color flow Study Info Indications R06.02 - Shortness of breath Complete two-dimensional, color flow and Doppler transthoracic echocardiogram is performed. History/Risk Factors SOB; COPD, CHF, HTN, edema. Summary 1. Left ventricular chamber dimension is normal. 2. Left ventricular systolic function is normal, estimated at 60-65%. 3. The left ventricular diastolic function is grade I diastolic dysfunction. 4. E/e' 7 is not elevated. 5. Left atrial chamber dimension is mildly enlarged. 6. There is moderate aortic valve sclerosis. 7. There is moderate aortic valve stenosis by visual estimation with a peak velocity of 263 cm/s, mean gradient of 17 mmHg, and aortic valve area of 0.9 cm2. 8. The mitral valve has moderately calcified annulus. Left Ventricle E/e' 7 is not elevated. Left ventricular chamber dimension is normal. Left ventricular systolic function is normal, estimated at 60-65%. The left ventricular diastolic function is grade I diastolic dysfunction. Right Ventricle Right ventricular chamber dimension is not well visualized. Left Atria Left atrial chamber dimension is mildly enlarged. Right Atria Right atrial chamber dimension is not well visualized. Aortic Valve There is moderate aortic valve stenosis by visual estimation with a peak velocity of 263 cm/s, mean gradient of 17 mmHg, and aortic valve area of 0.9 cm2. The aortic valve is trileaflet. There is moderate aortic valve sclerosis. There is no aortic valve regurgitation. Pulmonic Valve The pulmonic valve is not well visualized. Mitral Valve The mitral valve has moderately calcified annulus. There is no mitral valve stenosis. There is no mitral valve regurgitation. Tricuspid Valve The tricuspid valve leaflets are not well visualized. There is no tricuspid valve regurgitation. Pericardium/Pleural There is no pericardial effusion. Inferior Vena Cava Normal inferior vena cava with >50% collapse upon inspiration consistent with normal right atrial pressure, 5 mmHg. Aorta The aortic root size at the sinus of Valsalva is normal. Left Ventricular Outflow Tract Name Value Normal LVOT 2D LVOT Diameter 1.7 cm LVOT Doppler LVOT Peak Velocity 132 cm/s LVOT Peak Gradient 7 mmHg LVOT Mean Gradient 3 mmHg LVOT VTI 20 cm LVOT VTI/AV VTI Ratio 0.4 LVOT Stroke Volume 45 ml Mitral Valve Nam
[2019-11-30 17:14] LABS: Glucose Point of Care 293 (65-105)
--- NOTE | 2019-11-30 18:08 | PC.NURSE ---
Patient stated he had hamburger lodged in his throat. Patient breathing ok. Patient coughing hard to get piece of hamburger out. Large amount of chewed hamburger spit out on plate. Instructed patient to breath slowly, cough hard. Patient attempted small drink. Patient is on telemetry. Notified Dr. Hoover. No new orders. Dr. Hoover stated he would be up to check patient.
[2019-11-30 20:45] LABS: Glucose Point of Care 242 (65-105)
[2019-12-01] VITALS (16 sets, daily range): BP systolic 102–116; BP diastolic 57–74; PULSE 78–131; RESP 15–24; TEMP 36.1–36.6; O2SAT 93–96
[2019-12-01] MEDS: TEMAZEPAM 15 MG CAPSULE PO (00:38)
[2019-12-01] MEDS: IPRATROPIUM 0.5 MG/ALBUTEROL SULFATE 2.5 MG AMPUL.NEB 3 ML INHALATION ×5 (05:20→21:56)
[2019-12-01] MEDS: SALINE 0.65% NAS SOLN 44 ML BTL 1 SPRAY NASAL ×4 (05:20→23:55)
--- NOTE | 2019-12-01 05:41 | PC.NURSE ---
Patient called out stating I cant breathe. I need a breathing treatment immediately. Dollyman gave scheduled AM breathing treatment early. Patient tolerated well. He states that he feels better after the treatment. He appears to be visibly more calm after completing the neb treatment.
[2019-12-01 05:46] LABS: Hematocrit 43.8 % (37.0-46.0); Hemoglobin 14.4 g/dL (12.4-15.3); Mean Corpuscular HGB Conc 32.9 g/dL (32.0-36.0); Mean Corpuscular Hemoglobin 31.1 pg (27.0-31.0); Mean Corpuscular Volume 94.6 fL (78.0-102.0); Mean Platelet Volume 10.2 fl (8.7-11.0); Platelet Count Result 335 K/mm3 (150-420); Red Blood Count 4.63 M/mm3 (4.70-6.10); Red Cell Distribution Width 13.2 % (11.6-14.4)
[2019-12-01 06:07] LABS: Alanine Aminotransferase 22 U/L (16-63); Albumin Level 3.4 g/dL (3.4-5.0); Alkaline Phosphatase 65 U/L (46-116); Anion Gap 15.8 mmol/L (7-16); Aspartate Amino Transferase 11 U/L (15-37); Bilirubin,Total 0.3 mg/dL (0.00-1.00); Blood Urea Nitrogen 28 mg/dL (7-18); Calcium 9.2 mg/dL (8.5-10.1); Carbon Dioxide 29 mmol/L (21-32); Chloride 97 mmol/L (98-108); Estimated CRCL calculation 55 ml/min; Estimated Glomerular Filt Rate 50; Glucose 294 mg/dL (70-99); Magnesium 2.4 mg/dL (1.8-2.4); Osmolality Calculated 300 mOsm/kg (285-295); Potassium 4.8 mmol/L (3.5-5.1); Sodium 137 mmol/L (136-145); Total Protein 7.8 g/dL (6.4-8.2)
[2019-12-01 06:18] LABS: Lactic Acid 5.7 mmol/L (0.4-2.0)
--- NOTE | 2019-12-01 07:25 | P.PNCROSS_ITS ---
Event Note Event Note Event Note: For this patient encounter, I reviewed the FERMENTATION SCIENTIST or PA documentation, treatment plan, and medical decision making; and I had [id number] time with this patient.
--- NOTE | 2019-12-01 07:25 | PM.EVENT ---
Event Note Event Note Event Note: For this patient encounter, I reviewed the CHIEF JUVENILE PROBATION OFFICER or PA documentation, treatment plan, and medical decision making; and I had [id number] time with this patient.
[2019-12-01 07:52] LABS: Glucose Point of Care 294 (65-105)
[2019-12-01] MEDS: SENNA/DOCUSATE SODIUM TABLET 1 TAB PO (08:22)
[2019-12-01] MEDS: PRAVASTATIN SODIUM 20 MG TABLET 40 MG PO (08:23)
[2019-12-01] MEDS: FUROSEMIDE 20 MG TABLET 40 MG PO (08:23)
[2019-12-01] MEDS: metFORMIN HCL 500 MG TABLET 1000 MG PO (08:23)
[2019-12-01] MEDS: INSULIN GLARGINE (*BKC) 100 UNITS/ML 40 UNITS SUB-Q (08:26)
[2019-12-01] MEDS: SIMETHICONE 80 MG TAB.CHEW PO ×4 (08:28→20:34)
[2019-12-01] MEDS: BUDESONIDE/FORMOTEROL (*SP) 160-4.5 MCG 6 GM INH 2 PUFF INHALATION ×2 (08:39→20:34)
[2019-12-01] MEDS: FLUTICASONE PROPIONATE 0.05% NA SPR 16 GM BTL (*BKC) 1 SPRAY NASAL ×2 (08:40→20:35)
[2019-12-01] MEDS: methylPREDNISolone SOD SUCC 40 MG VIAL IV PUSH ×2 (09:00→16:41)
[2019-12-01] MEDS: PSYLLIUM POWDER PACKET 1 PACKET PO (11:50)
[2019-12-01] MEDS: SODIUM CHLORIDE 0.9% IV 500 ML IV CONT ×2 (11:53→21:25)
[2019-12-01 12:00] LABS: Glucose Point of Care 346 (65-105)
[2019-12-01 13:37] LABS: SARS-CoV-2 RNA PCR Negative
[2019-12-01 17:05] LABS: Glucose Point of Care 295 (65-105)
[2019-12-01 18:39] LABS: Lactic Acid 5.1 mmol/L (0.4-2.0)
--- NOTE | 2019-12-01 20:47 | PC.NURSE ---
Call placed to Dr Greene regarding pt blood glucose reading, states he will look at his regime and put in an order.
[2019-12-01 20:49] LABS: Glucose Point of Care 387 (65-105)
--- NOTE | 2019-12-01 20:55 | PC.NURSE ---
Dr Greene called and orders given to give sliding scale tonight and he will change sliding scale order to AC and HS
[2019-12-02] VITALS (10 sets, daily range): BP systolic 101–111; BP diastolic 51–70; PULSE 89–112; RESP 20–22; TEMP 36–36.4; O2SAT 94–96
[2019-12-02] MEDS: IPRATROPIUM 0.5 MG/ALBUTEROL SULFATE 2.5 MG AMPUL.NEB 3 ML INHALATION ×3 (02:01→09:42)
[2019-12-02] MEDS: SALINE 0.65% NAS SOLN 44 ML BTL 1 SPRAY NASAL ×2 (05:51→11:44)
[2019-12-02 05:55] LABS: Hematocrit 41.3 % (37.0-46.0); Hemoglobin 13.3 g/dL (12.4-15.3); Mean Corpuscular HGB Conc 32.2 g/dL (32.0-36.0); Mean Corpuscular Hemoglobin 30.6 pg (27.0-31.0); Mean Corpuscular Volume 94.9 fL (78.0-102.0); Mean Platelet Volume 10.4 fl (8.7-11.0); Platelet Count Result 284 K/mm3 (150-420); Red Blood Count 4.35 M/mm3 (4.70-6.10); Red Cell Distribution Width 13.2 % (11.6-14.4); White Blood Count 17.8 K/mm3 (4.8-10.8)
[2019-12-02 06:13] LABS: Lactic Acid 2.6 mmol/L (0.4-2.0)
[2019-12-02 06:20] LABS: Alanine Aminotransferase 21 U/L (16-63); Albumin Level 3.3 g/dL (3.4-5.0); Alkaline Phosphatase 72 U/L (46-116); Anion Gap 12.4 mmol/L (7-16); Aspartate Amino Transferase 11 U/L (15-37); Bilirubin,Total 0.2 mg/dL (0.00-1.00); Blood Urea Nitrogen 26 mg/dL (7-18); Carbon Dioxide 31 mmol/L (21-32); Chloride 100 mmol/L (98-108); Estimated CRCL calculation 69 ml/min; Estimated Glomerular Filt Rate > 60; Glucose 284 mg/dL (70-99); Magnesium 2.5 mg/dL (1.8-2.4); Osmolality Calculated 300 mOsm/kg (285-295); Potassium 5.4 mmol/L (3.5-5.1); Sodium 138 mmol/L (136-145); Total Protein 6.7 g/dL (6.4-8.2)
[2019-12-02 07:38] LABS: Glucose Point of Care 257 (65-105)
--- NOTE | 2019-12-02 07:49 | PC.NURSE ---
Up in room, oxygen on at 4L NC, states feeling better, no acute dyspnea, occassional faint wheeze per auscultation of lung sounds
[2019-12-02] MEDS: BUDESONIDE/FORMOTEROL (*SP) 160-4.5 MCG 6 GM INH 2 PUFF INHALATION (09:41)
[2019-12-02] MEDS: FUROSEMIDE 20 MG TABLET 40 MG PO (09:42)
[2019-12-02] MEDS: SIMETHICONE 80 MG TAB.CHEW PO (09:42)
[2019-12-02] MEDS: PRAVASTATIN SODIUM 20 MG TABLET 40 MG PO (09:42)
[2019-12-02] MEDS: methylPREDNISolone SOD SUCC 40 MG VIAL IV PUSH (09:43)
[2019-12-02] MEDS: INSULIN GLARGINE (*BKC) 100 UNITS/ML 40 UNITS SUB-Q (09:47)
[2019-12-02] MEDS: FLUTICASONE PROPIONATE 0.05% NA SPR 16 GM BTL (*BKC) 1 SPRAY NASAL (09:48)
[2019-12-02 11:42] LABS: Glucose Point of Care 246 (65-105)
--- NOTE | 2019-12-02 12:11 | PM.DS ---
DS: Diagnosis Admitting Diagnosis Admitting Diagnosis: Other malaise Discharge Diagnosis (1) Physical deconditioning: Code(s): R53.81 - Other malaise Status: Acute Assessment and Plan: much improved today witness the patient ambulating throughout the hospital hallway on 2 or 3 occasions today, appeared comfortable carrying on short conversation while walking. patient states that he is unable to exercise due to his COPD; he is significantly deconditioned, and could use cardiopulmonary rehab severe obesity with a BMI of 46 severe COPD requiring 2-4 L of oxygen continuously CHF history COPD and CHF uncontrolled Uncontrolled obesity BNP is controlled at 50 ECHO showed Left ventricular systolic function is normal, estimated at 60-65%. with grade I diastolic dysfunction. There is moderate aortic valve sclerosis. There is moderate aortic valve stenosis There is no tricuspid valve regurgitation. There is no pericardial effusion. (2) Acute exacerbation of chronic obstructive pulmonary disease: Code(s): J44.1 - Chronic obstructive pulmonary disease with (acute) exacerbation Status: Acute Assessment and Plan: Chest x-ray at admission on November 28 yesterday showed lucencies in the lungs, consistent with emphysema. There is mild atelectasis in the lower lung zones. No pleural effusion or pneumothorax. The heart size is normal. There are prominent paracardial fat pads. IMPRESSION: 1. Mild atelectasis in the lower lung zones. 2. Emphysema. Chest x-ray today showed no acute cardiopulmonary concerns. Ordered patient to use incentive spirometer today, he is demonstrating at least 1 L volumes with that. Continued IV steroids at this time. Patient has not had a fever since admission White count elevated yesterday at 19, improved to 17.8 today ( most likely due to the high-dose IV steroids that he received in the ER yesterday, 125 mg, as well as the continued IV steroids ordered for yesterday & today) Patient is a [facility], and when the clinical manager home care [facility] they [facility] have room in [place] but are requiring that the patient be ruled out as a COVID patient. So we have ordered a COVID swab to be completed and found to be negative x 2. The patient continues to deny any exposure to others, denies fevers, and states that he has been home ever since his last discharge with no exposure possible. (3) Obesity: Code(s): E66.9 - Obesity, unspecified Status: Acute Assessment and Plan: Patient will need further education, dietary and nutritional help. due to his significant abdominal girth and obesity he is physically restricting his lung expansion and lung field, furthering his difficulty in breathing at times by the position that he is in. Recommend cardiopulmonary therapy after discharge recommended dietary consult after discharge primary care provider will need to work with the patient strongly to continue and encourage weight loss (4) Pneumonia: Qualifiers: Laterality: left Lung location: lower lobe of lung Pneumonia type: due to unspecified organism Qualified Code(s): J18.9 - Pneumonia, unspecified organism Code(s): J18.9 - Pneumonia, unspecified organism Status: Acute Assessment and Plan: possible developing pneumonia admission, but seems to have improved with our interventions. Chest x-ray at admission on November 28 yesterday showed lucencies in the lungs, consistent with emphysema. There is mild atelectasis in the lower lung zones. No pleural effusion or pneumothorax. The heart size is normal. There are prominent paracardial fat pads. IMPRESSION: 1. Mild atelectasis in the lower lung zones. 2. Emphysema. Chest x-ray today showed no acute cardiopulmonary concerns. Ordered patient to use incentive spirometer today, he is demonstrating at least 1 L volumes with that. Ordered his incentive spirometer to be used today
[2019-12-02 13:28] LABS: Potassium 4.6 mmol/L (3.5-5.1)
--- NOTE | 2019-12-02 13:49 | PC.NURSE ---
Discharge instructions reviewed with patient, no questions or concerns voiced
--- NOTE | 2019-12-02 14:00 | PC.NURSE ---
Discharge to home via wheelchair, personal items and medications returned to patient, copy of discharge instructions given to patient, no questions voiced
--- NOTE | 2019-12-03 13:05 | PM.IMPN ---
Progress Note: A&P Assessment and Plan (1) Physical deconditioning: Code(s): R53.81 - Other malaise <Leonela Lake NP - Last Filed: 12/03/19 16:30> Status: Acute <Leonela Lake NP - Last Filed: 12/03/19 16:30> Assessment and Plan: improved today witness the patient ambulating throughout the hospital hallway on 2 or 3 occasions today, patient states that he is unable to exercise due to his COPD; he is significantly deconditioned, and could use cardiopulmonary rehab severe obesity with a BMI of 46 severe COPD requiring 2-4 L of oxygen continuously CHF history COPD and CHF uncontrolled Uncontrolled obesity BNP is controlled ECHO pending <Leonela Lake NP - Last Filed: 12/03/19 16:30> (2) Acute exacerbation of chronic obstructive pulmonary disease: Code(s): J44.1 - Chronic obstructive pulmonary disease with (acute) exacerbation <Leonela Lake NP - Last Filed: 12/03/19 16:30> Status: Acute <Leonela Lake NP - Last Filed: 12/03/19 16:30> Assessment and Plan: Chest x-ray at admission on November 28 showed lucencies in the lungs, consistent with emphysema. There is mild atelectasis in the lower lung zones. No pleural effusion or pneumothorax. The heart size is normal. There are prominent paracardial fat pads. IMPRESSION: 1. Mild atelectasis in the lower lung zones. 2. Emphysema. a repeat Chest x-ray showed no acute cardiopulmonary concerns. Ordered patient to use incentive spirometer , he is demonstrating at least 1 L volumes with that. Continued IV steroids at this time. Patient has not had a fever since admission White count elevated at 19, improved to 17.8 ( most likely due to the high-dose IV steroids that he received in the ER , 125 mg, as well as the continued IV steroids ) Patient is a [facility] patient, and when the point of care specialist checked with the [facility] they do have room in [place] but are requiring that the patient be ruled out as a COVID patient. So we have ordered a COVID swab to be completed and found to be negative x 2. The patient continues to deny any exposure to others, denies fevers, and states that he has been home ever since his last discharge with no exposure possible. <Leonela Lake NP - Last Filed: 12/03/19 16:30> (3) Obesity: Code(s): E66.9 - Obesity, unspecified <Leonela Lake NP - Last Filed: 12/03/19 16:30> Status: Acute <Leonela Lake NP - Last Filed: 12/03/19 16:30> Assessment and Plan: Patient will need further education, dietary and nutritional help. due to his significant abdominal girth and obesity he is physically restricting his lung expansion and lung field, furthering his difficulty in breathing at times by the position that he is in. Recommend cardiopulmonary therapy after discharge recommended dietary consult after discharge primary care provider will need to work with the patient strongly to continue and encourage weight loss <Leonela Lake NP - Last Filed: 12/03/19 16:30> (4) Pneumonia: Qualifiers: Laterality: left Lung location: lower lobe of lung Pneumonia type: due to unspecified organism Qualified Code(s): J18.9 - Pneumonia, unspecified organism <Leonela Lake NP - Last Filed: 12/03/19 16:30> Code(s): J18.9 - Pneumonia, unspecified organism <Leonela Lake NP - Last Filed: 12/03/19 16:30> Status: Acute <Leonela Lake NP - Last Filed: 12/03/19 16:30> Assessment and Plan: possible developing pneumonia admission, but seems to have improved with our interventions. Chest x-ray at admission on November 28 showed lucencies in the lungs, consistent with emphysema. There is mild atelectasis in the lower lung zones. No pleural effusion or pneumothorax. The heart size is normal. There are prominent paracardial fat pads. IMPRESSION: 1. Mild atelectasis in the lower lung zones. 2. Emphysema. Chest x
== END 2019-12-02 14:00 | disposition home or self-care (01) | DRG 951 ==
LOC: CHSED 14:13 → CHS2ND 14:34
PROVIDERS: Nurse Practitioner; Admitting Provider Emergency Medicine; Emergency Provider Emergency Medicine; PCP Family Medicine; Visit Provider Emergency Medicine
DX: J44.0 Chronic obstructive pulmonary disease with (acute) lower respiratory infection (principal); J44.1 Chronic obstructive pulmonary disease with (acute) exacerbation; J18.9 Pneumonia, unspecified organism; I50.9 Heart failure, unspecified; E11.9 Type 2 diabetes mellitus without complications; F17.210 Nicotine dependence, cigarettes, uncomplicated; Z79.4 Long term (current) use of insulin; Z99.81 Dependence on supplemental oxygen; Z20.828 Contact with and (suspected) exposure to other viral communicable diseases
CPT/HCPCS: U0002; 36415; 71045; 71046; 80053; 81001; 82550; 82553; 83605; 83735; 83880; 84100; 84132; 84484; 85025; 85027; 85380; 87040; 87070; 87086; 87088; 87205; 87635; 93005; 93306; 94640; 96361; 96365; 96367; 96375; 97161; 97165; 97530; 97535; 99285; A9270; J0456; J0696; J1815; J1940; J2920; J2930; J3475; J7040; U0003

== ENCOUNTER 2020-01-07 10:19 | Outpatient (CLI) | payer MEDICARE, SELFPAY ==
[2020-01-07 10:32] LABS: Hematocrit 41.4 % (37.0-46.0); Hemoglobin 13.2 g/dL (12.4-15.3); Mean Corpuscular HGB Conc 31.9 g/dL (32.0-36.0); Mean Corpuscular Volume 97.2 fL (78.0-102.0); Mean Platelet Volume 9.8 fl (8.7-11.0); Platelet Count Result 277 K/mm3 (150-420); Red Blood Count 4.26 M/mm3 (4.70-6.10); Red Cell Distribution Width 13.8 % (11.6-14.4); White Blood Count 13.2 K/mm3 (4.8-10.8)
[2020-01-07 10:47] LABS: Hemoglobin A1C 9.4 % (<5.7)
[2020-01-07 12:02] LABS: Alanine Aminotransferase 29 U/L (16-63); Albumin Level 3.2 g/dL (3.4-5.0); Alkaline Phosphatase 80 U/L (46-116); Anion Gap 10.6 mmol/L (7-16); Aspartate Amino Transferase 15 U/L (15-37); Bilirubin,Total 0.3 mg/dL (0.00-1.00); Blood Urea Nitrogen 11 mg/dL (7-18); Calcium 8.6 mg/dL (8.5-10.1); Carbon Dioxide 32 mmol/L (21-32); Chloride 102 mmol/L (98-108); Cholesterol 180 mg/dL (0-200); Estimated Glomerular Filt Rate > 60; Glucose 217 mg/dL (70-99); HDL Direct 66 mg/dL (40-60); LDL Cholesterol Calculated 100 mg/dL (<130); Osmolality Calculated 296 mOsm/kg (285-295); Potassium 4.6 mmol/L (3.5-5.1); Sodium 140 mmol/L (136-145); Total Protein 6.4 g/dL (6.4-8.2); Triglycerides 70 mg/dL (0-150)
== END 2020-01-07 10:20 | disposition home or self-care (01) ==
LOC: CHSLAB 10:22
PROVIDERS: PCP Family Medicine; Visit Provider Family Medicine
DX: E66.9 Obesity, unspecified (principal); I10 Essential (primary) hypertension; E11.9 Type 2 diabetes mellitus without complications; Z79.4 Long term (current) use of insulin
CPT/HCPCS: 36415; 80053; 80061; 83036; 85027

== ENCOUNTER 2020-03-29 10:58 | Outpatient (CLI) | payer MEDICARE, SELFPAY ==
--- NOTE | ~2020-03-29 | XR_ITS ---
XR chest 2V DATE: 03/29/2020 11:25 INDICATION: Wheezing and shortness of breath for one week. History of COPD. TECHNIQUE: PA and lateral views COMPARISON: 11/30/2019 2 view chest FINDINGS: Bilateral hyperinflation. No pulmonary infiltrate or consolidation, pleural effusion or pul monary vascular congestion or pneumothorax. Heart size is normal. There is aortic calcification. Diffuse osteopenia. IMPRESSION: Bilateral hyperinflation; no active cardiopulmonary disease Aortic atherosclerosis Diffuse osteopenia Reviewed, dictated and finalized at location A.
[2020-03-29 11:11] LABS: Hematocrit 45.9 % (37.0-46.0); Hemoglobin 14.7 g/dL (12.4-15.3); Mean Corpuscular Hemoglobin 30.8 pg (27.0-31.0); Mean Platelet Volume 9.8 fl (8.7-11.0); Platelet Count Result 331 K/mm3 (150-420); Red Blood Count 4.78 M/mm3 (4.70-6.10); Red Cell Distribution Width 13.1 % (11.6-14.4); White Blood Count 16.2 K/mm3 (4.8-10.8)
[2020-03-29 11:39] LABS: Anion Gap 5 mmol/L (8-16); Blood Urea Nitrogen 19 mg/dL (7-18); Carbon Dioxide 32 mmol/L (21-32); Chloride 101 mmol/L (98-108); Estimated Glomerular Filt Rate > 60; Glucose 218 mg/dL (70-99); Osmolality Calculated 295 mOsm/kg (285-295); Potassium 3.9 mmol/L (3.5-5.1); Sodium 138 mmol/L (136-145)
== END 2020-03-29 10:59 | disposition home or self-care (01) ==
PROVIDERS: PCP Family Medicine; Visit Provider Family Medicine
DX: J44.9 Chronic obstructive pulmonary disease, unspecified (principal)
CPT/HCPCS: 36415; 71046; 80048; 85027

== ENCOUNTER 2020-05-04 14:13 | Inpatient (IN) | payer OTHER, SELFPAY ==
[2020-05-04] VITALS (13 sets, daily range): BP systolic 105–134; BP diastolic 40–81; PULSE 122–155; RESP 20–24; TEMP 35.4–36.8; O2SAT 90–94; BMI 46.5
--- NOTE | ~2020-05-04 | XR_ITS ---
EXAMINATION: XR chest 2V DATE: 05/04/2020 15:15 INDICATION: Dyspnea. TECHNIQUE: Frontal and lateral views of the chest were obtained. COMPARISON: Chest 2 views 03/29/2020, chest CT 11/05/2017 FINDINGS: There is mild atelectasis in the lower lung zones. No pleural effusion or pneumothorax. The heart size is normal. There are prominent paracardial fat pads. IMPRESSION: 1. Mild atelectasis in the lower lung zones. Reviewed, dictated and finalized at location A.
--- NOTE | 2020-05-04 14:23 | ECG_ITS ---
Measurements Intervals [place] Rate: 141 P: 75 VA: 119 QRS: 56 QRSD: 86 T: 48 QT: 265 QTc: 407 Interpretive Statements SINUS TACHYCARDIA ATRIAL PREMATURE COMPLEX DELAYED PRECORDIAL R/S TRANSITION ABNORMAL ECG Electronically Signed On 05-04-2020 14:55:51 CDT by Doug Pablo D.O.
[2020-05-04] MEDS: methylPREDNISolone SOD SUCC 125 MG VIAL IV PUSH (14:27)
[2020-05-04] MEDS: IPRATROPIUM 0.5 MG/ALBUTEROL SULFATE 2.5 MG AMPUL.NEB 3 ML INHALATION ×3 (14:29→21:51)
[2020-05-04] MEDS: SODIUM CHLORIDE 0.9% IV 500 ML 999 ML IV CONT (14:33)
--- NOTE | 2020-05-04 14:33 | ED.SOB ---
HPI - SOB/Dyspnea General Chief Complaint: Shortness of Breath/Dyspnea Stated Complaint: shortness of breath Time Seen by Provider: 05/04/20 14:15 Source: patient Mode of arrival: wheelchair Limitations: no limitations History of Present Illness HPI Narrative: 69-year-old man with a history of COPD on 4 liters/minute by nasal cannula at home and type 2 diabetes comes in today complaining of 4 days of progressively worsening shortness of breath cough. Patient states that he has had no cold symptoms, fever, chest pain, sputum production, abdominal pain or vomiting/diarrhea. He lives with his mother who is asymptomatic and he has had no sick or CoViD-19 exposures. He states he has had 3 admissions here for COPD exacerbations. MD elicited complaint: shortness of breath and cough Pertinent past history: COPD and diabetes Onset (ago): day(s) (4) Timing: constant and progressively worsening Severity: severe Exacerbating factors: exertion Relieving factors: nothing Known history of: COPD and diabetes Associated symptoms: cough Treatment prior to arrival: oxygen Related Data Home Medications Medication Instructions Recorded Confirmed Lantus Solostar U-100 Insulin 40 unit SUBCUT DAILY 10/21/19 05/04/20 Spiriva Respimat 2 inh INHALATION QAM 10/21/19 05/04/20 budesonide-formoterol [Symbicort] 2 puff INHALATION Q12H 10/21/19 05/04/20 furosemide 80 mg PO DAILY 10/21/19 05/04/20 metformin 1,000 mg PO BID 10/21/19 05/04/20 pravastatin 40 mg PO DAILY 10/21/19 05/04/20 simethicone 80 mg PO QID 10/21/19 05/04/20 Allergies Allergy/AdvReac Type Severity Reaction Status Date / Time No Known Allergies Allergy Unknown Unknown Uncoded 05/04/20 14:43 Review of Systems Constitutional: Constitutional: Denies chills and Denies fever(s) Eyes: Eyes: Denies change in vision and Denies photophobia ENT: Denies dysphagia, Denies nasal congestion and Denies sore throat Cardiovascular: Cardiovascular: Denies chest pain, Reports rapid heart rate and Denies radiating jaw, neck or arm pain Respiratory: Respiratory: Reports cough, Reports dyspnea and Reports wheezing Gastrointestinal: Gastrointestinal: Denies abdominal pain, Denies diarrhea, Denies nausea and Denies vomiting Genitourinary: Genitourinary: Denies dysuria and Denies urinary frequency Musculoskeletal: Musculoskeletal: Denies arthralgias and Denies joint swelling Integumentary/Breasts: Skin/Breast: Denies pruritus, Denies erythema and Denies rash Neurologic: Denies vertigo, Denies dizziness and Denies syncope Hematologic/Lymphatic: Hematologic/Lymphatic: Denies easy bleeding and Denies easy bruising Allergic/Immunologic: Allergic/Immunologic: Denies lip swelling and Denies tongue swelling PMFSH Past Medical History Medical History (Updated 05/05/20 @ 07:06 by Salbador Greene MD) Anxiety brought on by worsening of COPD and when around crowds. COPD (chronic obstructive pulmonary disease) Obesity Pneumonia Type 2 diabetes mellitus treated with insulin Family History Family History Mother Hyperlipidemia Father No problems noted. Sibling Diabetes mellitus Sibling Pneumonia Social History Social History Smoking packs per day: 1.5 Smoking cigarettes per day: 30.0 Years smoked: 40 Smoking pack-years: 60.00 Smoking status: Former smoker Tobacco type: cigarettes Second hand tobacco smoke exposure: No Alcohol intake: never Drinks per week: 2 Substance use: never Substance use type: does not use Gender identity (if verbalized by the patient): Male Sexual Orientation (if Verbalized by the Patient): Straight or Heterosexual Spiritual care concerns: No Agree to blood products: Yes Exam Const: General: alert; No diaphoretic Nutritional Appearance: obese Orientation/consciousness: patient oriented x3 Limitations:
[2020-05-04] MEDS: ALBUTEROL SULFATE NEB 2.5 MG/3 ML INH INHALATION (14:38)
[2020-05-04 14:53] LABS: Basophils Absolute Auto 0.12 K/mm3 (0.00-0.10); Basophils Percent Auto 0.9 % (0.0-1.0); Eosinophils Absolute Auto 0.47 K/mm3 (0.02-0.50); Eosinophils Percent Auto 3.4 % (1.0-6.0); Hematocrit 44.5 % (37.0-46.0); Hemoglobin 14.3 g/dL (12.4-15.3); Immature Granulocyte Absolute 0.14 K/mm3 (0.00-0.00); Lymphocytes Absolute Auto 2.54 K/mm3 (1.10-4.50); Lymphocytes Percent Auto 18.3 % (18.0-42.0); Mean Corpuscular HGB Conc 32.1 g/dL (32.0-36.0); Mean Corpuscular Volume 93.3 fL (78.0-102.0); Mean Platelet Volume 9.7 fl (8.7-11.0); Monocytes Absolute Auto 1.13 K/mm3 (0.10-0.90); Monocytes Percent Auto 8.1 % (2.0-11.0); Neutrophils Absolute Auto 9.5 K/mm3 (1.7-7.2); Neutrophils Percent Auto 68.3 % (50.0-70.0); Platelet Count Result 413 K/mm3 (150-420); Red Blood Count 4.77 M/mm3 (4.70-6.10); White Blood Count 13.9 K/mm3 (4.8-10.8)
[2020-05-04 14:57] LABS: Add Urine Microscopic? YES; Appearance Urine Clear (Clear); Bilirubin Urine Negative (Negative); Blood Urine Negative (Negative); Color Urine Yellow (Yellow); Glucose Urine UA 3+ (Negative); Ketones Urine Negative (Negative); Leukocyte Esterase Ur Negative (Negative); Nitrate Urine Negative (Negative); Protein Urine Negative (Negative); Urobilinogen Urine 0.2 mg/dL (0.2-1.0)
[2020-05-04 15:07] LABS: Bacteria Urine Trace /hpf; RBC Urine 0-2 /hpf (0-2); Squamous Epithelial Cell Urine Rare /hpf (Few); WBC Urine 0-3 /hpf (0-3)
[2020-05-04 15:08] LABS: Partial Thromboplastin Time 29.3 SEC (22.3-31.6); Prothrombin Time 10.7 Seconds (9.64-11.0)
[2020-05-04 15:10] LABS: Alanine Aminotransferase 26 U/L (16-63); Albumin Level 3.1 g/dL (3.4-5.0); Alkaline Phosphatase 96 U/L (46-116); Anion Gap 10 mmol/L (8-16); Aspartate Amino Transferase 14 U/L (15-37); Bilirubin,Total 0.3 mg/dL (0.00-1.00); Blood Urea Nitrogen 11 mg/dL (7-18); Calcium 8.7 mg/dL (8.5-10.1); Carbon Dioxide 27 mmol/L (21-32); Chloride 98 mmol/L (98-108); Estimated CRCL calculation 74 ml/min; Estimated Glomerular Filt Rate > 60; Glucose 364 mg/dL (70-99); Osmolality Calculated 294 mOsm/kg (285-295); Potassium 4.2 mmol/L (3.5-5.1); Sodium 135 mmol/L (136-145); Total Protein 7.3 g/dL (6.4-8.2)
[2020-05-04 15:12] LABS: Troponin I < 0.02 ng/mL (0.00-0.056)
[2020-05-04 15:13] LABS: BNP < 5.0 pg/mL (0-100)
[2020-05-04] MEDS: SALINE 0.65% NAS SOLN 44 ML BTL 1 SPRAY NASAL (18:13)
[2020-05-04] MEDS: BUDESONIDE/FORMOTEROL (*SP) 160-4.5 MCG 6 GM INH 2 PUFF INHALATION (18:13)
[2020-05-04] MEDS: SIMETHICONE 80 MG TAB.CHEW PO ×2 (18:14→21:51)
[2020-05-04] MEDS: metFORMIN HCL 500 MG TABLET 1000 MG PO (18:14)
[2020-05-04 18:26] LABS: Glucose Point of Care 407 (65-105)
--- NOTE | 2020-05-04 18:31 | PC.NURSE ---
notified that patient's blood sugar was 407. Orders received.
[2020-05-04 18:43] LABS: Lactic Acid Reflex 3.8 mmol/L (0.4-2.0)
[2020-05-04 18:45] LABS: Troponin I < 0.02 ng/mL (0.00-0.056)
--- NOTE | 2020-05-04 19:24 | ADMGEN ---
This patient, Cooper Kenney, was admitted to 2nd Floor Room 211-1. Patient/family oriented to hospital policies and general routines including ID bracelet, bed and alarms, visiting hours, pain management, procedures, bathroom and other care routines, personal items, smoking policy, room service/diet, and visiting hours. Information on how to activate the Rapid Response Team has been discussed. Patient/Family are encouraged to report perceived risks to care and to ask questions if they do not understand what they are told or what they should do.
[2020-05-04 21:15] LABS: Reflex Lactic Acid Yes or No Add Lactic
[2020-05-04 21:25] LABS: Troponin I < 0.02 ng/mL (0.00-0.056)
[2020-05-04 21:26] LABS: Lactic Acid 6.2 mmol/L (0.4-2.0)
[2020-05-04] MEDS: FLUTICASONE PROPIONATE 0.05% NA SPR 16 GM BTL (*BKC) 1 SPRAY NASAL (21:51)
--- NOTE | 2020-05-04 21:53 | PC.NURSE ---
MD notified of Troponin <0.02 and Lactic acid 6.2. No new orders at this time.
[2020-05-04] MEDS: SODIUM CHLORIDE 0.9% IV 1,000 ML 999 ML IV CONT (22:15)
[2020-05-04 22:28] LABS: Glucose Point of Care 216 (65-105)
[2020-05-05] VITALS (12 sets, daily range): BP systolic 92–114; BP diastolic 46–73; PULSE 88–130; RESP 20–24; TEMP 35.6–36.6; O2SAT 90–96
--- NOTE | 2020-05-05 00:14 | PC.NURSE ---
Cotacted Dr. Greene to report pt's vital signs as requested. No new orders at this time.
[2020-05-05] MEDS: SALINE 0.65% NAS SOLN 44 ML BTL 1 SPRAY NASAL ×4 (00:47→17:20)
[2020-05-05] MEDS: IPRATROPIUM 0.5 MG/ALBUTEROL SULFATE 2.5 MG AMPUL.NEB 3 ML INHALATION ×3 (01:41→09:55)
[2020-05-05 02:24] LABS: Lactic Acid Reflex 5.6 mmol/L (0.4-2.0)
[2020-05-05 05:36] LABS: Basophils Absolute Auto 0.02 K/mm3 (0.00-0.10); Basophils Percent Auto 0.1 % (0.0-1.0); Hematocrit 43.7 % (37.0-46.0); Hemoglobin 13.8 g/dL (12.4-15.3); Immature Granulocyte Absolute 0.15 K/mm3 (0.00-0.00); Lymphocytes Absolute Auto 1.06 K/mm3 (1.10-4.50); Lymphocytes Percent Auto 7.3 % (18.0-42.0); Mean Corpuscular HGB Conc 31.6 g/dL (32.0-36.0); Mean Corpuscular Hemoglobin 29.7 pg (27.0-31.0); Mean Platelet Volume 9.8 fl (8.7-11.0); Monocytes Absolute Auto 0.24 K/mm3 (0.10-0.90); Monocytes Percent Auto 1.7 % (2.0-11.0); Neutrophils Percent Auto 89.9 % (50.0-70.0); Platelet Count Result 397 K/mm3 (150-420); Red Blood Count 4.65 M/mm3 (4.70-6.10); Red Cell Distribution Width 13.2 % (11.6-14.4); White Blood Count 14.5 K/mm3 (4.8-10.8)
[2020-05-05] MEDS: BUDESONIDE/FORMOTEROL (*SP) 160-4.5 MCG 6 GM INH 2 PUFF INHALATION ×2 (05:45→17:18)
[2020-05-05 05:58] LABS: Alanine Aminotransferase 27 U/L (16-63); Albumin Level 3.1 g/dL (3.4-5.0); Alkaline Phosphatase 82 U/L (46-116); Anion Gap 9 mmol/L (8-16); Aspartate Amino Transferase 10 U/L (15-37); Bilirubin,Total 0.3 mg/dL (0.00-1.00); Blood Urea Nitrogen 13 mg/dL (7-18); Calcium 9.1 mg/dL (8.5-10.1); Carbon Dioxide 26 mmol/L (21-32); Chloride 99 mmol/L (98-108); Estimated CRCL calculation 68 ml/min; Estimated Glomerular Filt Rate > 60; Glucose 360 mg/dL (70-99); Osmolality Calculated 293 mOsm/kg (285-295); Potassium 4.8 mmol/L (3.5-5.1); Sodium 134 mmol/L (136-145); Total Protein 7.5 g/dL (6.4-8.2)
[2020-05-05 05:59] LABS: Troponin I < 0.02 ng/mL (0.00-0.056)
--- NOTE | 2020-05-05 08:30 | PM.IMHP ---
H&P: HPI History of Present Illness Date/Time: 05/05/20 08:30 <JUAN JOSÉ Delgado - Last Filed: 05/05/20 13:58> Chief complaint: copd exacerbation <JUAN JOSÉ Delgado - Last Filed: 05/05/20 13:58> Narrative: Cooper Kenney is a 69 year old male who firmly admits he is noncompliant. Patient came to the hospital for worsening shortness of breath over the previous 4 days. Patient states he is usually able to walk around his house and go with his mother when she drives to complete errands. However, prior to coming to the ER he states he can only walk a few steps before getting shortness of breath and having increased work of breathing. Patient admits that he sits around at home and basically only gets up to get food and use the restroom. Patient states his breathing is better today than it was when he first came to the hospital. In an attempt to discuss with the patient the plan of care and a likely length of stay greater than a 24 hour observation the patient stated you can do whatever you want by will get better. I attempted to discuss things he could do as a change in lifestyle as to improve his condition and his response was you can order anything you want but I want to do it. In particular this was regarding dietary changes. Patient stated that he is 69 years old and is not going to change his ways. <JUAN JOSÉ Delgado - Last Filed: 05/05/20 13:58> Review of Systems Constitutional: Constitutional: Denies chills, Denies difficulty sleeping and Denies poor appetite <JUAN JOSÉ Delgado - Last Filed: 05/05/20 13:58> Cardiovascular: Cardiovascular: Denies chest pain, Denies chest pain at rest, Denies chest pain with activity and Reports dyspnea on exertion <JUAN JOSÉ Delgado - Last Filed: 05/05/20 13:58> Respiratory: Respiratory: Reports dyspnea on exertion <JUAN JOSÉ Delgado - Last Filed: 05/05/20 13:58> Gastrointestinal: Gastrointestinal: Denies abdominal pain and Denies constipation <JUAN JOSÉ Delgado - Last Filed: 05/05/20 13:58> Comments: Admits to periumbilical hernia without pain <JUAN JOSÉ Delgado - Last Filed: 05/05/20 13:58> Genitourinary: Comments: denies any urinary issues <JUAN JOSÉ Delgado - Last Filed: 05/05/20 13:58> Musculoskeletal: Comments: admits to right calf pain with walking and swelling in both legs with the right being slightly more swollen <JUAN JOSÉ Delgado - Last Filed: 05/05/20 13:58> Neurologic: Reports system reviewed and no additional complaints, except as documented <JUAN JOSÉ Delgado - Last Filed: 05/05/20 13:58> Psychiatric: Comments: admits to being set in his ways and that he will not change <JUAN JOSÉ Delgado - Last Filed: 05/05/20 13:58> FOR[facility]LY [facility] Past Medical History Medical History: Medical History (Updated 05/05/20 @ 12:14 by JUAN JOSÉ Delgado) Anxiety brought on by worsening of COPD and when around crowds. COPD (chronic obstructive pulmonary disease) Obesity Pneumonia Type 2 diabetes mellitus treated with insulin <JUAN JOSÉ Delgado - Last Filed: 05/05/20 13:58> Family History Family History: Family History Mother Hyperlipidemia Father No problems noted. Sibling Diabetes mellitus Sibling Pneumonia <JUAN JOSÉ Delgado - Last Filed: 05/05/20 13:58> Social History Social History: Social History Smoking packs per day: 1.5 Smoking cigarettes per day: 30.0 Years smoked: 40 Smoking pack-years: 60.00 Smoking status: Former smoker Tobacco type: cigarettes Second hand tobacco smoke exposure: No Alcohol intake: never Drinks per week: 2 Substance use: never Substance use type: does not use Gender identity (if verbalized by the patient): Male Sexual Orientation (if Verbalized by the Patient): Straight or Heterosexual
[2020-05-05] MEDS: PRAVASTATIN SODIUM 20 MG TABLET 40 MG PO (09:53)
[2020-05-05] MEDS: INSULIN GLARGINE (*BKC) 100 UNITS/ML 40 UNITS SUB-Q (09:53)
[2020-05-05] MEDS: SENNA/DOCUSATE SODIUM TABLET 1 TAB PO (09:53)
[2020-05-05] MEDS: ENOXAPARIN 40 MG/0.4 ML SYRINGE SUB-Q (09:53)
[2020-05-05] MEDS: LORATADINE 10 MG TABLET PO (09:54)
[2020-05-05] MEDS: lisinopriL 5 MG TABLET PO (09:54)
[2020-05-05] MEDS: metFORMIN HCL 500 MG TABLET 1000 MG PO ×2 (09:54→17:20)
[2020-05-05] MEDS: predniSONE 10 MG TABLET 50 MG PO (09:55)
[2020-05-05] MEDS: PSYLLIUM POWDER PACKET 1 PACKET PO (09:55)
[2020-05-05] MEDS: FLUTICASONE PROPIONATE 0.05% NA SPR 16 GM BTL (*BKC) 1 SPRAY NASAL ×2 (09:55→21:40)
[2020-05-05] MEDS: SIMETHICONE 80 MG TAB.CHEW PO ×4 (09:55→21:57)
[2020-05-05 11:22] LABS: Creatine Kinase 70 U/L (39-308)
[2020-05-05 11:50] LABS: Glucose Point of Care 334 (65-105)
[2020-05-05] MEDS: ALBUTEROL SULFATE (*SP) INHALER 2 PUFF INHALATION ×3 (12:01→20:31)
[2020-05-05] MEDS: ALPRAZolam (*CRX) 0.25 MG TABLET PO (14:49)
--- NOTE | 2020-05-05 15:20 | PC.NURSE ---
Patient sitting up in chair resting. Denies any needs. Call light at side. Telemetry cont. reading sinus tach. HR 120
[2020-05-05 17:32] LABS: Glucose Point of Care 186 (65-105)
--- NOTE | 2020-05-05 18:43 | PC.NURSE ---
Patients mother brought in extra clothing for patient. Nurse delivered clothing to patient. Patient sitting up in chair. Telemetry cont. reading sinus tach, HR 106. 02@4L per nc on. Call light and belongings at side.
[2020-05-05 22:18] LABS: Glucose Point of Care 180 (65-105)
[2020-05-05 22:31] LABS: SARS-CoV-2 RNA PCR Negative
[2020-05-06] VITALS: BP 114/69; PULSE 126; RESP 20; TEMP 36.5; O2SAT 96
[2020-05-06] MEDS: SALINE 0.65% NAS SOLN 44 ML BTL 1 SPRAY NASAL ×3 (00:45→13:04)
[2020-05-06] MEDS: BUDESONIDE/FORMOTEROL (*SP) 160-4.5 MCG 6 GM INH 2 PUFF INHALATION (03:30)
[2020-05-06 03:50] VITALS: BP 110/67; PULSE 100; RESP 20; TEMP 36.1; O2SAT 96
[2020-05-06 05:25] LABS: Basophils Absolute Auto 0.05 K/mm3 (0.00-0.10); Basophils Percent Auto 0.3 % (0.0-1.0); Eosinophils Absolute Auto 0.02 K/mm3 (0.02-0.50); Eosinophils Percent Auto 0.1 % (1.0-6.0); Hematocrit 43.3 % (37.0-46.0); Hemoglobin 13.7 g/dL (12.4-15.3); Immature Granulocyte Absolute 0.19 K/mm3 (0.00-0.00); Lymphocytes Absolute Auto 2.29 K/mm3 (1.10-4.50); Lymphocytes Percent Auto 11.8 % (18.0-42.0); Mean Corpuscular HGB Conc 31.6 g/dL (32.0-36.0); Mean Corpuscular Hemoglobin 29.9 pg (27.0-31.0); Mean Corpuscular Volume 94.5 fL (78.0-102.0); Mean Platelet Volume 9.4 fl (8.7-11.0); Monocytes Percent Auto 5.2 % (2.0-11.0); Neutrophils Absolute Auto 15.8 K/mm3 (1.7-7.2); Neutrophils Percent Auto 81.6 % (50.0-70.0); Platelet Count Result 389 K/mm3 (150-420); Red Blood Count 4.58 M/mm3 (4.70-6.10); Red Cell Distribution Width 13.5 % (11.6-14.4); White Blood Count 19.3 K/mm3 (4.8-10.8)
[2020-05-06 05:42] LABS: Alanine Aminotransferase 26 U/L (16-63); Albumin Level 3.1 g/dL (3.4-5.0); Alkaline Phosphatase 78 U/L (46-116); Anion Gap 5 mmol/L (8-16); Aspartate Amino Transferase 10 U/L (15-37); Bilirubin,Total 0.2 mg/dL (0.00-1.00); Blood Urea Nitrogen 18 mg/dL (7-18); Carbon Dioxide 31 mmol/L (21-32); Chloride 102 mmol/L (98-108); Estimated CRCL calculation 77 ml/min; Estimated Glomerular Filt Rate > 60; Glucose 218 mg/dL (70-99); Lactate Dehydrogenase 162 U/L (85-227); Osmolality Calculated 294 mOsm/kg (285-295); Potassium 4.4 mmol/L (3.5-5.1); Sodium 138 mmol/L (136-145); Total Protein 7.7 g/dL (6.4-8.2)
[2020-05-06 06:23] LABS: Lactic Acid Reflex 4.1 mmol/L (0.4-2.0)
[2020-05-06 08:00] VITALS: BP 103/56; PULSE 106; PULSE 126; RESP 20; TEMP 36.4; O2SAT 96
[2020-05-06 09:05] LABS: Reflex Lactic Acid Yes or No Add Lactic
[2020-05-06] MEDS: ENOXAPARIN 40 MG/0.4 ML SYRINGE SUB-Q (09:20)
[2020-05-06] MEDS: FLUTICASONE PROPIONATE 0.05% NA SPR 16 GM BTL (*BKC) 1 SPRAY NASAL (09:20)
[2020-05-06] MEDS: ALBUTEROL SULFATE (*SP) INHALER 2 PUFF INHALATION ×2 (09:21→13:04)
[2020-05-06] MEDS: predniSONE 10 MG TABLET 50 MG PO (09:22)
[2020-05-06] MEDS: SIMETHICONE 80 MG TAB.CHEW PO ×2 (09:22→13:04)
[2020-05-06] MEDS: PRAVASTATIN SODIUM 20 MG TABLET 40 MG PO (09:22)
[2020-05-06] MEDS: lisinopriL 5 MG TABLET PO (09:22)
[2020-05-06] MEDS: LORATADINE 10 MG TABLET PO (09:22)
[2020-05-06] MEDS: metFORMIN HCL 500 MG TABLET 1000 MG PO (09:22)
[2020-05-06] MEDS: SENNA/DOCUSATE SODIUM TABLET 1 TAB PO (09:23)
[2020-05-06] MEDS: INSULIN GLARGINE (*BKC) 100 UNITS/ML 40 UNITS SUB-Q (09:28)
[2020-05-06 09:38] LABS: Lactic Acid 3.7 mmol/L (0.4-2.0)
--- NOTE | 2020-05-06 10:46 | PM.DS ---
DS: Admitting Diagnosis Admitting Diagnosis Admitting Diagnosis: copd exacerbation <JUAN JOSÉ Delgado - Last Filed: 05/06/20 11:54> DS: Discharge Diagnosis Discharge Diagnosis (1) Acute exacerbation of chronic obstructive pulmonary disease: Code(s): J44.1 - Chronic obstructive pulmonary disease with (acute) exacerbation <JUAN JOSÉ Delgado - Last Filed: 05/06/20 11:54> Status: Acute <MELVIN DelgadoC - Last Filed: 05/06/20 11:54> Assessment and Plan: 05/05/2020 4 liters/minute nasal cannula to maintain saturation 92% or better, Albuterol, Symbicort, Spiriva Respimat, nebulizers were discontinued due to PUI for COVID, Prednisone daily, cardiac monitoring, will be monitoring patient's status, patient states feeling a little better today with respect to breathing 05/06/2020 Patient states he feels better today than he did yesterday, have continued with the above regimen, COVID result negative, will discharge patient home with Azithromycin and a Prednisone taper <Jai Suarez APN-C - Last Filed: 05/06/20 11:54> (2) Obesity: Code(s): E66.9 - Obesity, unspecified <JUAN JOSÉ Delgado - Last Filed: 05/06/20 11:54> Status: Acute <MELVIN DelgadoC - Last Filed: 05/06/20 11:54> Assessment and Plan: 05/05/2020 discussed dietary changes with patient who stated he would not follow them anyway as documented in the HPI above, he is on consistent carb diet, I did place an order for no additional snacks between breakfast lunch and dinner with the exception of bedtime snack allowed and p.o. fluids allowed. 05/06/2020 will give dietary recommendations for patient to read when he is at home <JUAN JOSÉ Delgado - Last Filed: 05/06/20 11:54> (3) Anxiety: Code(s): F41.9 - Anxiety disorder, unspecified <MELVIN DelgadoC - Last Filed: 05/06/20 11:54> Status: Acute <Jai Suarez APN-C - Last Filed: 05/06/20 11:54> Assessment and Plan: 05/05/2020 Continue patient's as needed Xanax daily 05/06/2020 no reports from nursing staff of patient having anxiety issues <Jai SuarezMELVINC - Last Filed: 05/06/20 11:54> (4) Type 2 diabetes mellitus treated with insulin: Code(s): E11.9 - Type 2 diabetes mellitus without complications; Z79.4 - retirement (current) use of insulin <Jai SuarezMELVINC - Last Filed: 05/06/20 11:54> Status: Acute <Jai SuarezJUAN JOSÉ - Last Filed: 05/06/20 11:54> Assessment and Plan: 05/05/2020 consistent carb diet, continue metformin and home insulins, AC/HS glucose checks, hypoglycemic orders placed, will monitor her lab values 05/06/2020 glucose levels have been improving, patient will need close follow-up with his primary care provider Dr. Nance whom was present during rounding today <Jai SuarezMELVINC - Last Filed: 05/06/20 11:54> (5) Person under investigation for COVID-19: Code(s): Z20.828 - Contact with and (suspected) exposure to other viral communicable diseases <Jai SuarezMELVINC - Last Filed: 05/06/20 11:54> Status: Acute <Jai SuarezJUAN JOSÉ - Last Filed: 05/06/20 11:54> Assessment and Plan: 05/05/2020 sample sent to lab 05/04/2020, results pending, currently in isolation, isolation precautions, as noted above nebulizers changed to MDI and the like due to possible COVID positive, will change back to nebulizers once negative result is reported, will monitor respiratory status 05/06/2020 test results were found to be negative <Jai SuarezMELVINC - Last Filed: 05/06/20 11:54> (6) Lactic acidosis: Code(s): E87.2 - Acidosis <Jai JohnJUAN JOSÉ garcia - Last Filed: 05/06/20 11:54> Status: Acute <Jai Suarez, SPACE [employer]ER-C - Last Filed: 05/06/20 11:54> Assessment and Plan: 05/05/2020 initial lactic acid was 6.1 improved to 5.6 today, HR 110s, WBC, 14
[2020-05-06 11:26] LABS: Lactic Acid Reflex 3.5 mmol/L (0.4-2.0)
[2020-05-06 11:57] LABS: Glucose Point of Care 219 (65-105)
[2020-05-06 12:00] VITALS: BP 126/60; PULSE 118; RESP 22; TEMP 37.3; O2SAT 93
--- NOTE | 2020-05-08 15:35 | PC.NURSE ---
Pt states the nurse went over his instructions and he understand them and also stated It was fantastic .
== END 2020-05-06 13:40 | disposition home or self-care (01) | DRG 191 ==
LOC: CHSED 14:16 → CHS2ND 05-05 07:06
PROVIDERS: Nurse Practitioner Family; Admitting Provider Emergency Medicine; Emergency Provider Emergency Medicine; PCP Family Medicine; Visit Provider Emergency Medicine
DX: J44.1 Chronic obstructive pulmonary disease with (acute) exacerbation (principal); E87.2 Acidosis; E66.9 Obesity, unspecified; E11.9 Type 2 diabetes mellitus without complications; Z20.828 Contact with and (suspected) exposure to other viral communicable diseases; F41.9 Anxiety disorder, unspecified; Z79.4 Long term (current) use of insulin; Z87.891 Personal history of nicotine dependence; Z91.19 Patient's noncompliance with other medical treatment and regimen
CPT/HCPCS: 36415; 36600; 71046; 80053; 81001; 82550; 83605; 83615; 83880; 84484; 85025; 85610; 85730; 87040; 87635; 93005; 94640; 96361; 96365; 96366; 96368; 96372; 96374; 96375; 99285; A9270; C9803; G0378; J0456; J0696; J1650; J1815; J2930; J7030; J7040; J7512; U0003

== ENCOUNTER 2021-03-30 13:33 | Outpatient (CLI) | payer MEDICARE, SELFPAY ==
--- NOTE | ~2021-03-30 | XR_ITS ---
EXAMINATION: XR chest 2V DATE: 03/30/2021 14:03 INDICATION: Shortness of breath TECHNIQUE: PA and lateral views of the chest are obtained. COMPARISON: 05/04/2020 FINDINGS: The lungs are free of acute opacities. There is no pleural effusion or pneumothorax. The ca rdiomediastinal silhouette is normal. There is mild thoracic spondylosis. IMPRESSION: 1. No acute cardiopulmonary abnormality. Reviewed, dictated and finalized at location B.
[2021-03-30 13:46] LABS: Hematocrit 47.4 % (37.0-46.0); Hemoglobin 15.2 g/dL (12.4-15.3); Mean Corpuscular HGB Conc 32.1 g/dL (32.0-36.0); Mean Corpuscular Hemoglobin 30.5 pg (27.0-31.0); Mean Corpuscular Volume 95.2 fL (78.0-102.0); Mean Platelet Volume 9.9 fl (8.7-11.0); Platelet Count Result 300 K/mm3 (150-420); Red Blood Count 4.98 M/mm3 (4.70-6.10); Red Cell Distribution Width 13.7 % (11.6-14.4); White Blood Count 17.7 K/mm3 (4.8-10.8)
[2021-03-30 14:06] LABS: Hemoglobin A1C 8.3 % (<5.7)
[2021-03-30 14:46] LABS: Alanine Aminotransferase 29 U/L (16-63); Albumin Level 3.4 g/dL (3.4-5.0); Alkaline Phosphatase 99 U/L (46-116); Anion Gap 8 mmol/L (8-16); Aspartate Amino Transferase 12 U/L (15-37); Bilirubin,Total 0.4 mg/dL (0.00-1.00); Blood Urea Nitrogen 21 mg/dL (7-18); Calcium 9.4 mg/dL (8.5-10.1); Carbon Dioxide 30 mmol/L (21-32); Chloride 100 mmol/L (98-108); Cholesterol 178 mg/dL (0-200); Estimated Glomerular Filt Rate > 60; Glucose 273 mg/dL (70-99); HDL Direct 97 mg/dL (40-60); LDL Cholesterol Calculated 71 mg/dL (<130); Osmolality Calculated 299 mOsm/kg (285-295); Potassium 4.9 mmol/L (3.5-5.1); Sodium 138 mmol/L (136-145); Total Protein 7.1 g/dL (6.4-8.2); Triglycerides 51 mg/dL (0-150)
== END 2021-03-30 13:34 | disposition home or self-care (01) ==
LOC: CHSLAB 13:38
PROVIDERS: PCP Family Medicine; Visit Provider Family Medicine
DX: J44.1 Chronic obstructive pulmonary disease with (acute) exacerbation (principal); I10 Essential (primary) hypertension; E11.9 Type 2 diabetes mellitus without complications; Z79.4 Long term (current) use of insulin
CPT/HCPCS: 36415; 71046; 80053; 80061; 83036; 85027

== ENCOUNTER 2022-09-11 14:25 | Outpatient (CLI) | payer MEDICARE, SELFPAY ==
[2022-09-11 14:52] LABS: Hematocrit 46.4 % (37.0-46.0); Hemoglobin 14.6 g/dL (12.4-15.3); Mean Corpuscular HGB Conc 31.5 g/dL (32.0-36.0); Mean Corpuscular Hemoglobin 30.4 pg (27.0-31.0); Mean Corpuscular Volume 96.7 fL (78.0-102.0); Mean Platelet Volume 9.9 fl (8.7-11.0); Platelet Count Result 254 K/mm3 (150-420); Red Cell Distribution Width 13.8 % (11.6-14.4)
[2022-09-11 15:25] LABS: Alanine Aminotransferase 11 U/L (16-63); Alkaline Phosphatase 106 U/L (46-116); Anion Gap 6 mmol/L (8-16); Aspartate Amino Transferase 11 U/L (15-37); Bilirubin,Total 0.3 mg/dL (0.00-1.00); Blood Urea Nitrogen 10 mg/dL (7-18); Calcium 8.4 mg/dL (8.5-10.1); Carbon Dioxide 33 mmol/L (21-32); Chloride 102 mmol/L (98-108); Cholesterol 198 mg/dL (0-200); Estimated Glomerular Filt Rate > 60; Glucose 126 mg/dL (70-99); HDL Direct 78 mg/dL (40-60); LDL Cholesterol Calculated 103 mg/dL (<130); Osmolality Calculated 293 mOsm/kg (285-295); Potassium 4.4 mmol/L (3.5-5.1); Sodium 141 mmol/L (136-145); Total Protein 6.7 g/dL (6.4-8.2); Triglycerides 85 mg/dL (0-150)
== END 2022-09-11 14:26 | disposition home or self-care (01) ==
LOC: CHSLAB 14:27
PROVIDERS: PCP Family Medicine; Visit Provider Family Medicine
DX: E11.9 Type 2 diabetes mellitus without complications (principal); I10 Essential (primary) hypertension; J44.1 Chronic obstructive pulmonary disease with (acute) exacerbation
CPT/HCPCS: 36415; 80053; 80061; 83036; 85027

== ENCOUNTER 2022-10-12 14:43 | Emergency (ER) | payer MEDICARE, SELFPAY ==
[2022-10-12] VITALS (15 sets, daily range): BP systolic 104–144; BP diastolic 61–95; PULSE 121–142; RESP 22–24; TEMP 36.6–36.9; O2SAT 91–94
--- NOTE | ~2022-10-12 | XR_ITS ---
XR chest 1V portable DATE: 10/12/2022 15:48 INDICATION: Increased shortness of breath. Productive cough, wheezing for one week TECHNIQUE: Portable AP chest on 10/12/2022 at 1545 hours COMPARISON: 03/30/2021 PA and lateral chest FINDINGS: Normal heart size. Aortic arch calcification. Mild bibasilar infiltrate or atelectasis may be present. The lungs otherwise appear clear. No pleural effusion or pulmonary mass congestion or pneumothorax is detected. Osteopenia. IMPRESSION: Limited portable study suggesting mild infiltrate or atelectasis at the lung bases Reviewed, dictated and finalized at location A.
--- NOTE | 2022-10-12 14:54 | ED.SOB ---
HPI - SOB/Dyspnea General Chief Complaint: Shortness of Breath/Dyspnea Stated Complaint: shortness of breath Time Seen by Provider: 10/12/22 14:53 Source: patient Mode of arrival: ambulatory Limitations: no limitations History of Present Illness HPI Narrative: 71-year-old male with a history of obesity, COPD on home oxygen, LINA on CPAP which he has not been using, Lymphedema lower extremities,hypertension, diabetes mellitus presents to the ER with -- worsening shortness of breath for the past 10 days which has been worse over the past 24 hours. -- Nonproductive cough no fever or chills. No sore throat or nasal congestion. No chest pain. MD elicited complaint: shortness of breath and cough Pertinent past history: COPD Onset (ago): day(s) ( present for the past 10 days.) Severity: moderate Exacerbating factors: exertion Relieving factors: oxygen, rest and bronchodilators Known history of: COPD Related Data Home oxygen amount: 4 liters Home Medications Medication Instructions Recorded Confirmed furosemide 80 mg tablet 80 mg PO DAILY 10/21/19 05/04/20 insulin glargine 100 unit/mL (3 40 unit subcut DAILY 10/21/19 05/04/20 mL) subcutaneous pen (Lantus Solostar U-100 Insulin) metformin 1,000 mg tablet 1,000 mg PO BID 10/21/19 05/04/20 pravastatin 40 mg tablet 40 mg PO DAILY 10/21/19 05/04/20 simethicone 80 mg chewable tablet 80 mg PO QID 10/21/19 05/04/20 Allergies Allergy/AdvReac Type Severity Reaction Status Date / Time No Known Allergies Allergy Verified 10/12/22 15:28 Review of Systems Review of Systems: All systems reviewed & are unremarkable except as noted in HPI and below Constitutional: Constitutional: Reports as per HPI and Reports no additional constitutional complaints Eyes: Eyes: Reports as per HPI and Reports no additional eye complaints ENT: Reports system reviewed and no additional complaints, except as documented and Reports as per HPI Cardiovascular: Cardiovascular: Reports as per HPI and Reports no additional cardiovascular complaints Respiratory: Respiratory: Reports as per HPI, Reports no additional respiratory complaints, Reports chest congestion, Reports cough, Reports dyspnea and Reports wheezing Gastrointestinal: Gastrointestinal: Reports as per HPI and Reports no additional gastrointestinal complaints Genitourinary: Genitourinary: Reports no additional male genitourinary complaints and Reports as per HPI Musculoskeletal: Musculoskeletal: Reports no additional musculoskeletal complaints and Reports as per HPI Integumentary/Breasts: Skin/Breast: Reports system reviewed and no additional complaints, except as docu and Reports as per HPI Neurologic: Reports system reviewed and no additional complaints, except as documented and Reports as per HPI Psychiatric: Psychiatric: Reports no additional psychiatric complaints and Reports as per HPI Endocrine: Endocrine: Reports no additional endocrine complaints and Reports as per HPI Hematologic/Lymphatic: Hematologic/Lymphatic: Reports no additional hematologic/lymphatic complaints and Reports as per HPI Allergic/Immunologic: Allergic/Immunologic: Reports no additional allergic/immunologic complaints and Reports as per HPI PMFSH Past Medical History Medical History (Updated 10/12/22 @ 17:04 by Lewis Tijerina MD) Anxiety brought on by worsening of COPD and when around crowds. COPD (chronic obstructive pulmonary disease) Obesity Pneumonia Type 2 diabetes mellitus treated with insulin Family History Family History Mother Hyperlipidemia Father No problems noted. Sibling Diabetes mellitus Sibling Pneumonia Social History Social History Smoking packs per day: 1.5 Smoking cigarettes per day: 30.0 Years smoked: 40 Smoking pack-years: 60.00 Smoking status: Former smoker Tobacco type: cig
--- NOTE | 2022-10-12 15:01 | ECG_ITS ---
Measurements Intervals [place] Rate: 133 P: 66 CA: 150 QRS: 58 QRSD: 70 T: 64 QT: 255 QTc: 380 Interpretive Statements SINUS TACHYCARDIA ATRIAL PREMATURE COMPLEX BASELINE ARTIFACT- I, III, AVL, V2-V6 ABNORMAL ECG COMPARED TO ECG 05/04/2020 14:37:32 MYOCARDIAL INFARCT FINDING NOW PRESENT Electronically Signed On 10-12-2022 16:37:10 CDT by Doug Pablo D.O.
[2022-10-12] MEDS: IPRATROPIUM 0.5 MG/ALBUTEROL SULFATE 2.5 MG AMPUL.NEB 3 ML INHALATION (15:10)
[2022-10-12] MEDS: methylPREDNISolone SOD SUCC 125 MG VIAL IV PUSH (15:12)
[2022-10-12 15:33] LABS: Basophils Absolute Auto 0.15 K/mm3 (0.00-0.10); Basophils Percent Auto 1.1 % (0.0-1.0); Eosinophils Absolute Auto 0.75 K/mm3 (0.02-0.50); Eosinophils Percent Auto 5.3 % (1.0-6.0); Hematocrit 46.8 % (37.0-46.0); Hemoglobin 14.9 g/dL (12.4-15.3); Immature Granulocyte Absolute 0.11 K/mm3 (0.00-0.00); Immature Granulocyte Percent A 0.8 % (0.0-0.0); Lymphocytes Absolute Auto 2.27 K/mm3 (1.10-4.50); Lymphocytes Percent Auto 16.2 % (18.0-42.0); Mean Corpuscular HGB Conc 31.8 g/dL (32.0-36.0); Mean Corpuscular Hemoglobin 30.5 pg (27.0-31.0); Mean Corpuscular Volume 95.7 fL (78.0-102.0); Mean Platelet Volume 10.3 fl (8.7-11.0); Monocytes Absolute Auto 1.02 K/mm3 (0.10-0.90); Monocytes Percent Auto 7.3 % (2.0-11.0); Neutrophils Absolute Auto 9.7 K/mm3 (1.7-7.2); Neutrophils Percent Auto 69.3 % (50.0-70.0); Platelet Count Result 318 K/mm3 (150-420); Red Blood Count 4.89 M/mm3 (4.70-6.10); Red Cell Distribution Width 14.3 % (11.6-14.4)
[2022-10-12 15:47] LABS: D Dimer 0.47 mg/L (0.19-0.50); Partial Thromboplastin Time 29.9 SEC (23.90-30.70); Prothrombin Time 11.2 Seconds (9.50-12.10)
[2022-10-12 15:50] LABS: Lactic Acid Reflex 1.6 mmol/L (0.4-2.0)
[2022-10-12 16:03] LABS: Alanine Aminotransferase 24 U/L (16-63); Albumin Level 3.2 g/dL (3.4-5.0); Alkaline Phosphatase 125 U/L (46-116); Anion Gap 8 mmol/L (8-16); Aspartate Amino Transferase 14 U/L (15-37); Bilirubin,Total 0.4 mg/dL (0.00-1.00); Blood Urea Nitrogen 13 mg/dL (7-18); Calcium 9.3 mg/dL (8.5-10.1); Carbon Dioxide 35 mmol/L (21-32); Chloride 100 mmol/L (98-108); Estimated CRCL calculation 68 ml/min; Estimated Glomerular Filt Rate > 60; Glucose 192 mg/dL (70-99); NT Pro B Type Natriuretic Pept 35 pg/mL (0-125); Osmolality Calculated 301 mOsm/kg (285-295); Potassium 4.1 mmol/L (3.5-5.1); Sodium 143 mmol/L (136-145); Total Protein 8.4 g/dL (6.4-8.2); Troponin I 9.6 ng/L (0.00-60.4)
[2022-10-12 16:25] LABS: Influenza A QL RT-PCR Negative (Negative); Influenza B QL RT-PCR Negative (Negative); SARS-CoV-2 RNA PCR Negative (Negative)
[2022-10-12] MEDS: AZITHROMYCIN 250 MG TABLET 500 MG PO (16:29)
[2022-10-12 16:32] LABS: RSV RNA, RT-PCR Negative (Negative)
== END 2022-10-12 17:16 | disposition home or self-care (01) ==
PROVIDERS: Emergency Provider Internal Medicine Critical Care Medicine; PCP Family Medicine
DX: J44.1 Chronic obstructive pulmonary disease with (acute) exacerbation (principal); E11.65 Type 2 diabetes mellitus with hyperglycemia; I10 Essential (primary) hypertension; Z99.81 Dependence on supplemental oxygen; Z79.4 Long term (current) use of insulin; Z87.891 Personal history of nicotine dependence; Z20.822 Contact with and (suspected) exposure to COVID-19
CPT/HCPCS: 36415; 71045; 80053; 83605; 83880; 84484; 85025; 85380; 85610; 85730; 87637; 93005; 96365; 96375; 99284; A9270; J0696; J2930

== ENCOUNTER 2023-05-20 14:13 | Emergency (ER) | payer MEDICARE, SELFPAY ==
[2023-05-20] VITALS (90 sets, daily range): BP systolic 95–149; BP diastolic 49–115; PULSE 143–196; RESP 16–38; TEMP 36.5–36.7; O2SAT 90–99
--- NOTE | ~2023-05-20 | XR_ITS ---
XR chest 1V portable 05/20/2023 15:27 Indication: Shortness of breath and tachycardia Procedure: AP portable chest Comparison: Comparison to multiple prior studies sequentially, with oldest reviewed study dated 03/2020. Findings: Cardiomegaly. Mild pulmonary interstitial edema. No significant effusion or pneumothorax. T here is a battery pacemaker pack overlying the right upper chest. Impression: 1: Cardiomegaly with mild interstitial edema. Reviewed, dictated and finalized at location A. Impression: 1: Cardiomegaly with mild interstitial edema.
--- NOTE | 2023-05-20 14:16 | ECG_ITS ---
Measurements Intervals [place] Rate: 195 P: [place]: 0 QRS: 34 QRSD: 136 T: 0 QT: 224 QTc: 404 Interpretive Statements SUPRAVENTRICULAR TACHYCARDIA DELAYED PRECORDIAL R/S TRANSITION ABNORMAL ECG COMPARED TO ECG 10/12/2022 15:52:29 SUPRAVENTRICULAR TACHYCARDIA NOW PRESENT Electronically Signed On 05-21-2023 8:09:59 CDT by Doug Pablo D.O.
[2023-05-20] MEDS: dilTIAZem HCl INJ 25 MG/5 ML VIAL 5 MG IV PUSH (14:21)
[2023-05-20 14:35] LABS: Hematocrit 45.1 % (37.0-46.0); Hemoglobin 14.6 g/dL (12.4-15.3); Mean Corpuscular HGB Conc 32.4 g/dL (32.0-36.0); Mean Corpuscular Hemoglobin 31.5 pg (27.0-31.0); Mean Corpuscular Volume 97.2 fL (78.0-102.0); Mean Platelet Volume 10.3 fl (8.7-11.0); Platelet Count Result 260 K/mm3 (150-420); Red Blood Count 4.64 M/mm3 (4.70-6.10); Red Cell Distribution Width 14.1 % (11.6-14.4)
[2023-05-20 14:39] LABS: White Blood Count 20.3 K/mm3 (4.8-10.8)
--- NOTE | 2023-05-20 14:45 | ED.SOB ---
HPI - SOB/Dyspnea General Chief Complaint: Shortness of Breath/Dyspnea Stated Complaint: SVT Time Seen by Provider: 05/20/23 14:16 Source: patient and other ( primary doctor brought patient to the ER via wheelchair from clinic) Mode of arrival: wheelchair Limitations: no limitations History of Present Illness HPI Narrative: patient is a 72-year-old male with acute on chronic shortness of breath and uses home oxygen. He was seen in the primary doctor today for the shortness of breath and wanted antibiotics but found to be in SVT with a heart rate at the 190s and brought to the emergency room for further evaluation and treatment. MD elicited complaint: shortness of breath Pertinent past history: COPD, congestive heart failure and diabetes Onset (ago): day(s) Context: recent illness Timing: constant Severity: moderate Exacerbating factors: nothing Relieving factors: nothing Known history of: COPD and congestive heart failure Associated symptoms: denies other symptoms Treatment prior to arrival: oxygen Related Data Home oxygen amount: 4 liters Home Medications Medication Instructions Recorded Confirmed furosemide 80 mg tablet 80 mg PO DAILY 10/21/19 05/20/23 insulin glargine 100 unit/mL (3 40 unit subcut DAILY 10/21/19 05/20/23 mL) subcutaneous pen (Lantus Solostar U-100 Insulin) metformin 1,000 mg tablet 1,000 mg PO BID 10/21/19 05/20/23 pravastatin 40 mg tablet 40 mg PO DAILY 10/21/19 05/20/23 simethicone 80 mg chewable tablet 80 mg PO QID 10/21/19 05/20/23 Allergies Allergy/AdvReac Type Severity Reaction Status Date / Time No Known Allergies Allergy Verified 05/20/23 15:12 Review of Systems Review of Systems: All systems reviewed & are unremarkable except as noted in HPI and below Constitutional: Constitutional: Reports no additional constitutional complaints Eyes: Eyes: Reports no additional eye complaints ENT: Reports system reviewed and no additional complaints, except as documented Cardiovascular: Cardiovascular: Reports no additional cardiovascular complaints Respiratory: Respiratory: Reports no additional respiratory complaints Gastrointestinal: Gastrointestinal: Reports no additional gastrointestinal complaints Genitourinary: Genitourinary: Reports no additional male genitourinary complaints Musculoskeletal: Musculoskeletal: Reports no additional musculoskeletal complaints Integumentary/Breasts: Skin/Breast: Reports system reviewed and no additional complaints, except as docu Neurologic: Reports system reviewed and no additional complaints, except as documented Psychiatric: Psychiatric: Reports no additional psychiatric complaints Endocrine: Endocrine: Reports no additional endocrine complaints Hematologic/Lymphatic: Hematologic/Lymphatic: Reports no additional hematologic/lymphatic complaints Allergic/Immunologic: Allergic/Immunologic: Reports no additional allergic/immunologic complaints PMFSH Past Medical History Medical History (Updated 05/20/23 @ 17:37 by Guero Up MD) Anxiety brought on by worsening of COPD and when around crowds. COPD (chronic obstructive pulmonary disease) Obesity Pneumonia Type 2 diabetes mellitus treated with insulin Family History Family History Mother Hyperlipidemia Father No problems noted. Sibling Diabetes mellitus Sibling Pneumonia Social History Social History Smoking packs per day: 1.5 Smoking cigarettes per day: 30.0 Years smoked: 40 Smoking pack-years: 60.00 Smoking status: Former smoker Tobacco type: cigarettes Second hand tobacco smoke exposure: No Alcohol intake: never Drinks per week: 2 Alcohol use details: Occasional use Substance use: never Substance use type: does not use Living arrangements: with family Gender identity (if verbalized by the patient): Male Sexual
[2023-05-20 14:58] LABS: Alanine Aminotransferase 77 U/L (16-63); Albumin Level 2.9 g/dL (3.4-5.0); Alkaline Phosphatase 101 U/L (46-116); Anion Gap 9 mmol/L (8-16); Aspartate Amino Transferase 23 U/L (15-37); Bilirubin,Total 0.5 mg/dL (0.00-1.00); Blood Urea Nitrogen 26 mg/dL (7-18); Calcium 9.9 mg/dL (8.5-10.1); Carbon Dioxide 28 mmol/L (21-32); Chloride 100 mmol/L (98-108); Estimated CRCL calculation 70 ml/min; Estimated Glomerular Filt Rate > 60; Glucose 83 mg/dL (70-99); Magnesium 2.1 mg/dL (1.8-2.4); NT Pro B Type Natriuretic Pept 745 pg/mL (0-125); Osmolality Calculated 287 mOsm/kg (285-295); Potassium 4.8 mmol/L (3.5-5.1); Sodium 137 mmol/L (136-145); Total Protein 6.7 g/dL (6.4-8.2)
[2023-05-20 15:01] LABS: Total Cells Counted 100
[2023-05-20 15:02] LABS: Band Neutrophils Percent 2 % (0-6); Basophils Percent Manual 0 % (0-1); Eosinophils Percent Manual 0 % (1-6); Lymphocytes Absolute Manual 2.43 K/mm3 (1.1-4.5); Lymphocytes Percent Manual 12 % (18-44); Monocytes Percent Manual 3 % (3-9); Neutrophils Absolute Manual 17.25 K/mm3 (1.3-6.7); Neutrophils Percent Manual 83 % (46-73); Platelet Estimate Adequate (Adequate); Thyroid Stimulating Hormone 2.27 uIU/mL (0.36-3.74)
[2023-05-20] MEDS: AMIODARONE 150 MG/D5W 100 ML 150 MG/100 ML BAG 300 MG IV CONT ×2 (15:03→21:35)
--- NOTE | 2023-05-20 15:42 | ECG_ITS ---
Measurements Intervals [place] Rate: 187 P: [place]: 0 QRS: 30 QRSD: 140 T: -40 QT: 238 QTc: 420 Interpretive Statements SUPRAVENTRICULAR TACHYCARDIA, CONSIDER ATRIAL FLUTTER BASELINE ARTIFACT- I, II, III, AVR, AVL, AVF, V2-V6 ABNORMAL ECG COMPARED TO ECG 05/20/2023 14:35:00 NO SIGNIFICANT CHANGES Electronically Signed On 05-21-2023 8:12:22 CDT by Doug Pablo D.O.
[2023-05-20] MEDS: methylPREDNISolone SOD SUCC 125 MG VIAL IV PUSH (15:48)
[2023-05-20] MEDS: PIPERACILLN/TAZ 3.375GM/NS50ML 3.375 GM/50 ML BAG IVPB (15:52)
[2023-05-20] MEDS: AMIODARONE 360 MG/D5W 200 ML 360 MG/200 ML BAG 33.33 MG IV CONT (16:16)
--- NOTE | 2023-05-20 16:30 | PC.NURSE ---
pt states if needed CPR only...no intubation. mother in room at this time. erp made aware.
[2023-05-20] MEDS: DIGOXIN INJ 250 MCG/ML 2 ML AMP (*BKC) IV PUSH (18:07)
[2023-05-20] MEDS: ENOXAPARIN 120 MG/0.8 ML SYRINGE SUB-Q (18:17)
[2023-05-20 18:45] LABS: Partial Thromboplastin Time 26.7 SEC (23.90-30.70); Prothrombin Time 11.3 Seconds (9.50-12.10)
[2023-05-20 18:51] LABS: Troponin I 46.9 ng/L (0.00-60.4)
--- NOTE | 2023-05-20 20:12 | PC.NURSE ---
[facility] [employer] UPDATED VIA PHONE. STILL WAITING ON BED ASSIGNMENT FROM [facility].
[2023-05-20 21:31] LABS: Glucose Point of Care 94 mg/dl (65-105)
[2023-05-20] MEDS: AMIODARONE 360 MG/D5W 200 ML 360 MG/200 ML BAG 16.67 MG IV CONT (22:42)
[2023-05-21] MEDS: dilTIAZem HCl INJ 25 MG/5 ML VIAL 10 MG IV PUSH (00:41)
--- NOTE | 2023-05-21 01:06 | PC.NURSE ---
UPDATE GIVEN TO LETA CAAL AT [facility], UPDATE ON VS, LABS AND MEDICATIONS GIVEN. GBAAS TO TRANSFER PATIENT.
--- NOTE | 2023-05-26 13:04 | PC.NURSE ---
FINAL BLOOD CULTURE REPORT: no growth after 5 days, no further action or treatment needed.
== END 2023-05-21 01:10 | disposition short-term general hospital (02) ==
PROVIDERS: Emergency Provider Emergency Medicine; PCP Family Medicine
DX: I47.10 Supraventricular tachycardia, unspecified (principal); I48.91 Unspecified atrial fibrillation; J44.1 Chronic obstructive pulmonary disease with (acute) exacerbation; J18.9 Pneumonia, unspecified organism; E11.9 Type 2 diabetes mellitus without complications; I50.9 Heart failure, unspecified; Z79.4 Long term (current) use of insulin; Z79.899 Other long term (current) drug therapy; Z87.891 Personal history of nicotine dependence
CPT/HCPCS: 36415; 71045; 80053; 82948; 83605; 83735; 83880; 84443; 84484; 85025; 85610; 85730; 87040; 93005; 96365; 96366; 96367; 96372; 96375; 99285; J0153; J0282; J1160; J1650; J2543; J2930